=== PATIENT | male | born 1945 | race Caucasian/White ===

== ENCOUNTER 2024-03-28 07:49 | Observation (INO) ==
--- NOTE | 2024-03-28 08:17 | Emergency Department Note ---
ED Provider Note History of Present Illness Chief Complaint: Illness Stated Complaint: burning in chest when breathing Time Seen by Provider: 03/28/24 07:57 79-year-old male, history of coronary artery disease and status post stent x 2 approximately 11 years ago at [facility], who presents to the emergency department with complaint of a burning sensation across his chest. The patient reports that the pain is worsened when laying on his back, and significantly worsened when laying on either side. The patient denies any shortness of breath. Patient denies any pain radiating into the back. The patient reports an episode of reflux approximately 2 weeks ago, but has not had any persistent or recurrent reflux since that time. Patient denies any nausea, diaphoresis, lightheadedness or weakness. Patient also denies any recent upper respiratory symptoms, including sore throat, cough, runny nose or muscle aches. The patient reports that he and his did travel to [place] (900 mile round trip) starting on 03/10, and returned on 03/18. The patient denies any lower extremity swelling, or history of blood clots. The patient currently rates his overall discomfort a 1 out of 10. The patient is on a baby aspirin daily. Home Medications Medication Instructions Recorded Confirmed Type aspirin 81 mg tablet,delayed 81 mg PO DAILY 03/28/24 03/28/24 History release glucosamine sulfate 750 mg tablet 750 mg PO DAILY 03/28/24 03/28/24 History lisinopril 2.5 mg tablet 2.5 mg PO DAILY 03/28/24 03/28/24 History multivitamin 1 tab PO DAILY 03/28/24 03/28/24 History mv-mn-folic 200 mcg-vit K 15 1 cap PO BID 03/28/24 03/28/24 History mcg-lutein 5 mg-zeaxanthin 1 mg capsule (PreserVision AREDS 2 Plus Multivit) nitroglycerin 0.4 mg sublingual 0.4 mg sublingual UD 03/28/24 03/28/24 History tablet omega 6-dkg-qrr-fish oil 1,000 mg 1 cap PO BID 03/28/24 03/28/24 History (120 mg-180 mg) capsule (Fish Oil) rosuvastatin 40 mg tablet 40 mg PO DAILY 03/28/24 03/28/24 History ibuprofen 600 mg tablet 600 mg PO Q8H #0 tabs 03/29/24 Rx omeprazole 40 mg capsule,delayed 40 mg PO DAILY #14 caps 03/29/24 Rx release Allergies Allergy/AdvReac Type Severity Reaction Status Date / Time ketoconazole Allergy Intermediate Rash Unverified 03/28/24 10:43 Past Med/Surg History Problem List S/P coronary artery stent placement Pleuritis Hypoxia (Acute) Acute chest pain (Acute) Acute pericarditis (Acute) Chest pain Medical History CLL (chronic lymphocytic leukemia) Hypertension Hyperlipidemia GERD (gastroesophageal reflux disease) Coronary artery disease Surgical History History of coronary artery stent placement Social History Smoking Status: Never smoker Hx Alcohol Use: Yes Alcohol type: wine Hx Substance Use: No Preferred Language: Kyrgyz Communication Ability: Effective Engineering Director Required: No Beliefs That Will Affect Care: None marital status: Current Living Situation: Spouse current occupational status: retired Feels Safe at Home: Yes Assistive Devices: Glasses Physical Exam Vital Signs Vital Signs - 24 hr 03/28/24 07:53 03/28/24 08:10 03/28/24 08:24 Temperature 36.8 C Temperature Source Temporal Artery Scan Pulse Rate 84 69 Pulse Rate [Apical] Pulse Rate from SpO2 Sensor 68 Pulse Rhythm [Apical] Respiratory Rate 18 19 Respiratory Effort / Characteristics Non-Labored Spontaneous Respiratory Depth Normal Blood Pressure 133/91 Blood Pressure [Right Arm] Blood Pressure Mean 105 Blood Pressure Mean [Right Arm] Blood Pressure Position Sitting Pulse Oximetry 95 95 94 Oxygen Delivery Method Room Air Room Air Sepsis Recent Fever Within 48 Hours No Sepsis New/Unexplained Change in Mental Status No Sepsis Action Taken by Nursing No Action Required 03/28/24 08:29 03/28/24 08:30 03/28/24 08:30 Temperature Temperature Source Pulse Rate 66 62 Pulse Rate [Apical] Pulse Rate from SpO2 Sensor 64 Pulse Rhythm [Apical] Respiratory Rate 21 Respiratory Effort / Characteristics Respiratory Depth Blood Pressure 135/77 Blood Pressure [Right Arm] Blood Pressure Mean 103 Blood Pressure Mean [Right Arm] Blood Pressure Position Pulse Oximetry 93 Oxygen Delivery Method Sepsis Recent Fever Within 48 Hours Sepsis New/Unexplained Change in Mental Status Sepsis Action Taken by Nursing 03/28/24 08:43 03/28/24 08:43 03/28/24 08:45 Temperature Temperature Source Pulse Rate 65 Pulse Rate [Apical] 65 Pulse Rate from SpO2 Sensor 66 Pulse Rhythm [Apical] Regular Respiratory Rate 20 14 Respiratory Effort / Characteristics Non-Labored Respiratory Depth Normal Blood Pressure 116/77 Blood Pressure [Right Arm] 116/77 Blood Pressure Mean 91 Blood Pressure Mean [Right Arm] 90 Blood Pressure Position Pulse Oximetry 93 92 Oxygen Delivery Method Room Air Sepsis Recent Fever Within 48 Hours Sepsis New/Unexplained Change in Mental Status Sepsis Action Taken by Nursing 03/28/24 08:49 03/28/24 08:50 03/28/24 08:50 Temperature Temperature Source Pulse Rate 62 Pulse Rate [Apical] Pulse Rate from SpO2 Sensor 69 Pulse Rhythm [Apical] Respiratory Rate 22 Respiratory Effort / Characteristics Respiratory Depth Blood Pressure Blood Pressure [Right Arm] Blood Pressure Mean Blood Pressure Mean [Right Arm] Blood Pressure Position Pulse Oximetry 89 L 93 91 Oxygen Delivery Method Room Air Room Air Sepsis Recent Fever Within 48 Hours Sepsis New/Unexplained Change in Mental Status Sepsis Action Taken by Nursing 03/28/24 08:50 03/28/24 08:52 03/28/24 08:55 Temperature Temperature Source Pulse Rate Pulse Rate [Apical] 65 57 L Pulse Rate from SpO2 Sensor Pulse Rhythm [Apical] Regular Regular Respiratory Rate 14 16 Respiratory Effort / Characteristics Non-Labored Spontaneous Respiratory Depth Normal Blood Pressure 92/59 L Blood Pressure [Right Arm] 92/59 L 93/56 L Blood Pressure Mean 67 Blood Pressure Mean [Right Arm] 70 68 Blood Pressure Position Pulse Oximetry 93 90 Oxygen Delivery Method Room Air Room Air Sepsis Recent Fever Within 48 Hours Sepsis New/Unexplained Change in Mental Status Sepsis Action Taken by Nursing 03/28/24 08:55 03/28/24 08:55 03/28/24 09:00 Temperature Temperature Source Pulse Rate 57 L Pulse Rate [Apical] Pulse Rate from SpO2 Sensor 60 Pulse Rhythm [Apical] Respiratory Rate 23 Respiratory Effort / Characteristics Respiratory Depth Blood Pressure 93/56 L 94/60 L Blood Pressure [Right Arm] Blood Pressure Mean 69 66 Blood Pressure Mean [Right Arm] Blood Pressure Position Pulse Oximetry 90 Oxygen Delivery Method Sepsis Recent Fever Within 48 Hours Sepsis New/Unexplained Change in Mental Status Sepsis Action Taken by Nursing 03/28/24 09:00 03/28/24 09:22 03/28/24 09:22 Temperature Temperature Source Pulse Rate 63 64 Pulse Rate [Apical] Pulse Rate from SpO2 Sensor 64 64 Pulse Rhythm [Apical] Respiratory Rate 26 H 16 Respiratory Effort / Characteristics Respiratory Depth Blood Pressure 99/65 L Blood Pressure [Right Arm] Blood Pressure Mean 82 Blood Pressure Mean [Right Arm] Blood Pressure Position Pulse Oximetry 88 L 94 Oxygen Delivery Method Sepsis Recent Fever Within 48 Hours Sepsis New/Unexplained Change in Mental Status Sepsis Action Taken by Nursing 03/28/24 09:30 03/28/24 09:30 03/28/24 10:03 Temperature Temperature Source Oral Pulse Rate 64 Pulse Rate [Apical] 63 Pulse Rate from SpO2 Sensor 64 Pulse Rhythm [Apical] Respiratory Rate 18 18 Respiratory Effort / Characteristics Respiratory Depth Normal Blood Pressure 108/63 Blood Pressure [Right Arm] 108/63 Blood Pressure Mean 75 Blood Pressure Mean [Right Arm] 78 Blood Pressure Position Pulse Oximetry 92 92 Oxygen Delivery Method Room Air Sepsis Recent Fever Within 48 Hours Sepsis New/Unexplained Change in Mental Status Sepsis Action Taken by Nursing 03/28/24 10:03 03/28/24 10:30 03/28/24 10:30 Temperature Temperature Source Pulse Rate 66 57 L Pulse Rate [Apical] Pulse Rate from SpO2 Sensor 74 57 L Pulse Rhythm [Apical] Respiratory Rate 16 22 Respiratory Effort / Characteristics Respiratory Depth Blood Pressure 106/60 Blood Pressure [Right Arm] Blood Pressure Mean 77 Blood Pressure Mean [Right Arm] Blood Pressure Position Pulse Oximetry 91 94 Oxygen Delivery Method Sepsis Recent Fever Within 48 Hours Sepsis New/Unexplained Change in Mental Status Sepsis Action Taken by Nursing 03/28/24 11:00 03/28/24 11:00 03/28/24 11:30 Temperature Temperature Source Pulse Rate 59 L 65 Pulse Rate [Apical] Pulse Rate from SpO2 Sensor 59 L 65 Pulse Rhythm [Apical] Respiratory Rate 28 H 26 H Respiratory Effort / Characteristics Respiratory Depth Blood Pressure 108/71 Blood Pressure [Right Arm] Blood Pressure Mean 79 Blood Pressure Mean [Right Arm] Blood Pressure Position Pulse Oximetry 96 95 Oxygen Delivery Method Sepsis Recent Fever Within 48 Hours Sepsis New/Unexplained Change in Mental Status Sepsis Action Taken by Nursing CONSTITUTIONAL: Healthy and well nourished. Alert and oriented X 3. GCS 15. Patient does not appear in any acute distress. HEENT: No scleral icterus or conjunctival injection. No rhinorrhea, posterior pharyngeal erythema or facial edema. NECK: Full active range of motion without discomfort. No JVD or carotid bruits appreciated. LYMPHATICS: No cervical chain adenopathy. RESPIRATORY: Clear to auscultation bilaterally with no wheezing, crackles, rhonchi or stridor. CARDIOVASCULAR: Regular rate and rhythm with no murmurs, rubs or gallops. GASTROINTESTINAL: Bowel sounds present in all quadrants. Examination shows an umbilical hernia, otherwise no focal abdominal tenderness to palpation. MUSCULOSKELETAL: Full range of motion of all joints without discomfort. INTEGUMENTARY: No rash or other significant dermatologic conditions noted. HEMATOLOGIC: No ecchymosis or petechiae. PSYCHIATRIC: Positive affect. NEUROLOGIC: No focal neurologic deficits noted. Course Course Patient history and physical exam were performed. Nurses notes were reviewed. Vital signs were reviewed and were normal. I did review an outside ECG that the patient brought with him from [place], showing no concerning findings. Further review of medical record shows that the patient has not had any prior visits to our facility. IV access was established, and labs are drawn. An ECG was performed, continue to show a normal sinus rhythm without ischemic changes or infarct. The patient was placed on laborer salvage while in the emergency department. Since arrival to the emergency department, and after having an ECG and labs drawn, the patient reported that the pain was getting worse. The patient was administered an aspirin 324 mg chew. A nitroglycerin trial was commenced without any relief of symptoms. It is noted that the patient did have mild hypoxia with a reading as low as 87% while I was in the room. Portable chest x-ray did not show any consolidations or pneumothorax. Cardiac prominence is noted. Review of labs shows an elevated white count, with the patient then advised me that he does have a history of CLL. Further review of labs does not show evidence for electrolyte imbalance. Coag studies and D-dimer are also normal. Glucose is mildly elevated, however LFTs and lipase are normal. An order was placed for a Bio[employer] PCR respiratory panel. Findings and presenting symptoms were discussed with Dr. Mcleod, ED attending physician, who agreed that CT angiography is warranted to rule out pericarditis. He also recommended adding on labs for tickborne illness, which can also cause pericarditis. These orders were entered into the system. Findings were also discussed with the patient, who was in agreement with CT imaging. CT angiography was performed, and suggestive of a left-sided early/mild pericarditis with thickening and adjacent fat stranding. The case was then again discussed with Dr. Mcleod, who recommended hospitalist evaluation. He also recommended administering colchicine, and discussing IV antibiotics with the hospitalist service. An order was placed for blood cultures, lactate and procalcitonin as well. The patient was also administered colchicine 1.2 mg orally. I discussed findings with the patient as well, who was in agreement with admission. The case was then discussed with Dr. Zamarripa, [facility] Hospitalist, who also evaluated the patient, and agrees with admission. Please see their dictation for further treatment and final disposition. After care was transferred to the hospitalist service, it is noted that the patient's Lyme screen was negative. Administered Medications Discontinued Medications Aspirin (Aspirin Chew 324 Mg) 324 mg PO NOW STA Stop: 03/28/24 08:36 Last Admin: 03/28/24 08:41 Dose: 324 mg Documented By: JELLY Aspirin (Aspirin 81 Mg Ectab) 81 mg PO DAILY RENEE Stop: 04/28/24 08:59 Last Admin: 03/29/24 09:29 Dose: 81 mg Documented By: SANDRA Colchicine (Colchicine 0.6 Mg Tab) 1.2 mg PO NOW ONE Stop: 03/28/24 11:14 Last Admin: 03/28/24 12:05 Dose: 1.2 mg Documented By: ALPHONSO Colchicine (Colchicine 0.6 Mg Tab) 0.6 mg PO ONE ONE Stop: 03/28/24 22:01 Last Admin: 03/28/24 21:32 Dose: 0.6 mg Documented By: AGUILAR Colchicine (Colchicine 0.6 Mg Tab) 0.6 mg PO BID RENEE Stop: 04/28/24 08:59 Last Admin: 03/29/24 09:29 Dose: 0.6 mg Documented By: SANDRA Sodium Chloride (Nss) 500 mls @ 999 mls/hr IV .Q31M ONE Stop: 03/28/24 09:29 Last Infusion: 03/28/24 10:03 Dose: Infused Documented By: Admin: 03/28/24 09:16 Dose: 999 mls/hr Documented By: JELLY Ibuprofen (Ibuprofen 600 Mg Tab) 600 mg PO NOW STA Stop: 03/28/24 12:03 Last Admin: 03/28/24 13:09 Dose: 600 mg Documented By: NOHEMY Ibuprofen (Ibuprofen 600 Mg Tab) 600 mg PO Q8H RENEE Stop: 04/27/24 19:59 Last Admin: 03/29/24 13:01 Dose: 600 mg Documented By: Admin: 03/29/24 04:26 Dose: 600 mg Documented By: Admin: 03/28/24 19:36 Dose: 600 mg Documented By: AGUILAR Ioversol (Optiray 320 125ml) 120 ml IV ONCE ONE Stop: 03/28/24 10:02 Last Admin: 03/28/24 10:02 Dose: 120 ml Documented By: MARCELL Nitroglycerin (Nitroglycerin Sl 0.4 Mg/Tab Tab) 0.4 mg SL Q5M PRN PRN Reason: Chest Pain Stop: 04/27/24 08:34 Last Admin: 03/28/24 08:51 Dose: 0.4 mg Documented By: Admin: 03/28/24 08:46 Dose: 0.4 mg Documented By: Admin: 03/28/24 08:41 Dose: 0.4 mg Documented By: JELLY Pantoprazole Sodium (Pantoprazole 40 Mg Tab) 40 mg PO NOW STA Stop: 03/28/24 12:02 Last Admin: 03/28/24 13:09 Dose: 40 mg Documented By: NOHEMY Pantoprazole Sodium (Pantoprazole 40 Mg Tab) 40 mg PO DAILY RENEE Stop: 04/28/24 08:59 Last Admin: 03/29/24 09:30 Dose: 40 mg Documented By: SANDRA Rosuvastatin Calcium (Rosuvastatin Calcium 20 Mg Tab) 40 mg PO DAILY RENEE Stop: 04/28/24 08:59 Last Admin: 03/29/24 09:30 Dose: 40 mg Documented By: SANDRA Medical Decision Making Medical Records Attestation: I reviewed the patient's medical records. Home Medications was personally reviewed by me Laboratory Data Attestation: I reviewed the patient's lab results. 03/29/24 06:55 03/29/24 06:55 Lab Results 03/28/24 03/28/24 03/28/24 Range/Units 08:10 08:55 10:05 WBC 14.34 H (4.8-10.8) K/ul RBC 4.87 (4.70-6.10) M/uL Hgb 14.7 (14.0-18.0) g/dl Hct 43.6 (42.0-52.0) % MCV 89.5 (80.0-100.0) fL MCH 30.2 (25.0-34.0) pg MCHC 33.7 (32.0-36.0) g/dL RDW Std Deviation 43.4 (36.4-46.3) fL RDW Coeff of Frandy 13.3 (11.5-14.5) % Plt Count 205 (130-400) K/uL MPV 9.8 (9.4-12.4) fL Immature Gran % (Auto) 0.6 % Neut % (Auto) 63.5 % Lymph % (Auto) 29.2 % Gilliam % (Auto) 6.1 % Eos % (Auto) 0.3 % Baso % (Auto) 0.3 % Neut # (Auto) 9.11 H (1.40-6.50) K/uL Lymph # (Auto) 4.19 H (1.20-3.40) K/uL Gilliam # (Auto) 0.87 H (0.11-0.59) K/uL Eos # (Auto) 0.04 (0.00-0.50) K/uL Baso # (Auto) 0.05 (0.00-0.20) K/uL Immature Gran # (Auto) 0.08 (0.01-0.20) K/uL ESR 16 (0-20) mm/hr PT 10.4 (9.0-12.0) Seconds INR 1.0 (0.9-1.1) APTT 30 (21-31) Seconds PTT Ratio 1.1 D-Dimer < 190 (0-500) ug/L FEU Sodium 138 (136-145) mmol/L Potassium 4.3 (3.5-5.1) mmol/L Chloride 105 (98-107) mmol/L Carbon Dioxide 27 (21-32) mmol/L Anion Gap 6 (3-11) BUN 17 (6-23) mg/dl Creatinine 0.90 (0.6-1.4) mg/dl Est Cr Clr Drug Dosing 79.9 ml/min Est GFR ( Amer) 94.5 ml/min Est GFR (Non-Af Amer) 81.5 ml/min BUN/Creatinine Ratio 18.9 (10-20) Glucose 128 H (70-99(Fasting)) mg/dl Lactate (0.4-2.0) mmol/L Calcium 9.6 (8.6-10.3) mg/dl Total Bilirubin 0.7 (0.2-1.0) mg/dl AST 16 (13-39) U/L ALT 15 (7-52) U/L Alkaline Phosphatase 55 (34-104) U/L Troponin I High Sens 4.2 (0-20) pg/ml C-Reactive Protein 0.69 H (0-0.5) mg/dl Total Protein 7.1 (6.0-8.3) gm/dl Albumin 4.4 (3.4-5.0) gm/dl Globulin 2.7 (2.5-4.0) gm/dl Albumin/Globulin Ratio 1.6 (0.9-2) Lipase 6 L (11-82) U/L Procalcitonin (0-0.5) ng/ml Adenovirus (PCR) Not Detected (NotDetected) Anaplasma Smear See Comment Babesia Smear See Comment B. pertussis DNA (PCR) Not Detected (NotDetected) B.parapertussis DNA PCR Not Detected (NotDetected) Lyme Disease Screen Negative (Negative) C. pneumoniae DNA (PCR) Not Detected (NotDetected) Coronavirus OC43 (PCR) Not Detected (NotDetected) Coronavirus HKU1 (PCR) Not Detected (NotDetected) Coronavirus 229E (PCR) Not Detected (NotDetected) SARS-CoV-2 (PCR) Not Detected (NotDetected) Coronavirus NL63 (PCR) Not Detected (NotDetected) Human Metapneumovir PCR Not Detected (NotDetected) Influenza Type A (PCR) Not Detected (NotDetected) Influenza Type B (PCR) Not Detected (NotDetected) M. pneumoniae (PCR) Not Detected (NotDetected) Parainfluenza 1 (PCR) Not Detected (NotDetected) Parainfluenza 2 (PCR) Not Detected (NotDetected) Parainfluenza 3 (PCR) Not Detected (NotDetected) Parainfluenza 4 (PCR) Not Detected (NotDetected) RSV (PCR) Not Detected (NotDetected) Entero/Rhino (PCR) Not Detected (NotDetected) 03/28/24 Range/Units 11:33 WBC (4.8-10.8) K/ul RBC (4.70-6.10) M/uL Hgb (14.0-18.0) g/dl Hct (42.0-52.0) % MCV (80.0-100.0) fL MCH (25.0-34.0) pg MCHC (32.0-36.0) g/dL RDW Std Deviation (36.4-46.3) fL RDW Coeff of Frandy (11.5-14.5) % Plt Count (130-400) K/uL MPV (9.4-12.4) fL Immature Gran % (Auto) % Neut % (Auto) % Lymph % (Auto) % Gilliam % (Auto) % Eos % (Auto) % Baso % (Auto) % Neut # (Auto) (1.40-6.50) K/uL Lymph # (Auto) (1.20-3.40) K/uL Gilliam # (Auto) (0.11-0.59) K/uL Eos # (Auto) (0.00-0.50) K/uL Baso # (Auto) (0.00-0.20) K/uL Immature Gran # (Auto) (0.01-0.20) K/uL ESR (0-20) mm/hr PT (9.0-12.0) Seconds INR (0.9-1.1) APTT (21-31) Seconds PTT Ratio D-Dimer (0-500) ug/L FEU Sodium (136-145) mmol/L Potassium (3.5-5.1) mmol/L Chloride (98-107) mmol/L Carbon Dioxide (21-32) mmol/L Anion Gap (3-11) BUN (6-23) mg/dl Creatinine (0.6-1.4) mg/dl Est Cr Clr Drug Dosing ml/min Est GFR ( Amer) ml/min Est GFR (Non-Af Amer) ml/min BUN/Creatinine Ratio (10-20) Glucose (70-99(Fasting)) mg/dl Lactate 0.8 (0.4-2.0) mmol/L Calcium (8.6-10.3) mg/dl Total Bilirubin (0.2-1.0) mg/dl AST (13-39) U/L ALT (7-52) U/L Alkaline Phosphatase (34-104) U/L Troponin I High Sens (0-20) pg/ml C-Reactive Protein (0-0.5) mg/dl Total Protein (6.0-8.3) gm/dl Albumin (3.4-5.0) gm/dl Globulin (2.5-4.0) gm/dl Albumin/Globulin Ratio (0.9-2) Lipase (11-82) U/L Procalcitonin 0.06 (0-0.5) ng/ml Adenovirus (PCR) (NotDetected) Anaplasma Smear Babesia Smear B. pertussis DNA (PCR) (NotDetected) B.parapertussis DNA PCR (NotDetected) Lyme Disease Screen (Negative) C. pneumoniae DNA (PCR) (NotDetected) Coronavirus OC43 (PCR) (NotDetected) Coronavirus HKU1 (PCR) (NotDetected) Coronavirus 229E (PCR) (NotDetected) SARS-CoV-2 (PCR) (NotDetected) Coronavirus NL63 (PCR) (NotDetected) Human Metapneumovir PCR (NotDetected) Influenza Type A (PCR) (NotDetected) Influenza Type B (PCR) (NotDetected) M. pneumoniae (PCR) (NotDetected) Parainfluenza 1 (PCR) (NotDetected) Parainfluenza 2 (PCR) (NotDetected) Parainfluenza 3 (PCR) (NotDetected) Parainfluenza 4 (PCR) (NotDetected) RSV (PCR) (NotDetected) Entero/Rhino (PCR) (NotDetected) Imaging Data Attestation: I personally reviewed and interpreted this imaging study as follows: My Impression: My interpretation of a portable chest x-ray does not show any consolidations or pneumothorax. Mild cardiomegaly is noted. CT angiography of the chest does not show evidence for pulmonary emboli, pneumonia or pneumothorax. Radiologist does make mention of mild thickening and adjacent fat stranding of the left side of the pericardium, concerning for possible early/mild pericarditis. No pericardial fluid is appreciated. Radiologist reports were also reviewed with concurrence. Radiologist's Impression: Chest X-Ray 03/28/24 08:10 XR chest 1V portable CLINICAL HISTORY: Chest pain, nonspecific. COMPARISON STUDY: No previous studies for comparison. FINDINGS: Lung volumes are normal. Minimal left basilar opacity favors atelectasis. There is no pneumothorax or pleural effusion. Mild cardiomegaly. Mediastinal contours are normal. There is no evidence for pulmonary edema. IMPRESSION: No acute cardiopulmonary findings. Mild cardiomegaly. ACT 112: Negative or not required by law. Electronically signed by: Herb Al M.D. 03/28/2024 8:55 AM Chest CTA 03/28/24 09:42 CHEST CTA for PULMONARY ARTERIES CT DOSE: 875.55 mGy.cm HISTORY: Atypical chest pain. Shortness of breath. TECHNIQUE: Multiaxial CT images of the chest were performed following the intravenous administration of contrast to evaluate the pulmonary arteries. 3D/Maximal intensity projection images were also obtained. Sagittal and coronal reformations were also reviewed. A dose lowering technique was utilized adhering to the principles of ALARA. COMPARISON STUDY: None. FINDINGS: No acute fractures within the chest. No pneumothorax. No pleural effusions. The central airways are patent. No focal lung consolidations to suggest a pneumonia. No evidence for pulmonary edema. Mild dependent changes are seen at the lung bases. Normal thyroid gland. Limited views the upper abdomen demonstrate a normal spleen and adrenal glands. A subcentimeter hypodense lesion within the left hepatic lobe is densely too small to characterize but statistically represents a cyst. No mediastinal or hilar lymphadenopathy. The heart is normal in size. Mild thickening and adjacent fat stranding within the or left side of the pericardium. However, no pericardial fluid. This is best seen image 78. Normal esophagus. Normal caliber thoracic aorta with no evidence for dissection. Moderate to severe coronary artery calcifications are noted. No filling defects within the pulmonary arteries to suggest a pulmonary embolus. IMPRESSION: 1. No evidence for a pulmonary embolus or an aortic dissection. 2. Moderate to severe coronary artery calcifications. 3. Mild thickening and adjacent fat stranding within the or left side of the pericardium. However, no pericardial fluid. This is indeterminate but could represent an early/mild pericarditis. ACT 112: Negative or not required by law. Electronically signed by: Odilon Maguire M.D. 03/28/2024 10:39 AM ECG Data Attestation: I personally reviewed and interpreted this ECG as follows: Indication: + chest pain Rate (beats per minute): 74 Rhythm: + normal sinus ECG Intervals/blocks: + Normal QRS, + Normal QT and + Normal MI ECG [place]: + Normal ECG ST segments: + Normal ST segments Comparison ECG Date: from (An outside ECG from the [facility] urgent care center dated 03/27/2024) Change: no significant change MDM Narrative Cardiac monitoring: An order was placed for continuous cardiac monitoring. The monitor shows a rate of 74 with a normal sinus rhythm. hydrator operator history was reviewed throughout the evaluation, and no dysrhythmias were noted. See ED Course section for further details of today's visit. Patient presents with complaint of a burning sensation across to his chest that started yesterday while at a grocery store. The patient was seen at [facility] with a normal ECG. With persistent symptoms, the patient elected to come to the emergency department for further evaluation. The patient does have significant history of coronary artery disease with 2 stents placed 11 years ago. Today's ECG does not show any concerning findings. Portable chest x-ray shows mild cardiomegaly without evidence for pneumonia or pneumothorax. Review of labs shows an elevated white count that the patient attributes to his baseline CLL labs. Troponin was normal. Peripheral smears for Babesia and ehrlichiosis were negative. Lyme screen was also negative. CT imaging was concerning for an early pericarditis as seen over the left pericardial border. Given the patient's presenting symptoms, I do feel that further admission is warranted, with cardiology consultation. The patient was administered colchicine for possible pericarditis. It is noted that the patient also had some hypoxia earlier in his exam. At this point, I do feel that the patient warrants admission. At this point, I do not feel that IV antibiotics are warranted pending further workup, including blood cultures. Impression Acute pericarditis, Acute chest pain, Hypoxia Discharge Plan Visit Data Chief Complaint: Illness Stated Complaint: burning in chest when breathing ED Provider: Marcelino Mcleod ED Midlevel Provider: Ortiz Goodman Discharge Problem: Acute pericarditis, Acute chest pain, Hypoxia Patient Disposition: Admitted As Inpatient Discharge Instructions Interventions: ED Discharge Assessment Last Done: 03/28/24 15:50 Addendum March 30, 2024 03:11 I was consulted by the Advanced Practice Provider and was substantively involved in the patient's visit.This includes aspects of the HPI, MDM, diagnostic interpretations, and disposition/plan. I discussed the case with the FAIZA and agree with the findings and plan as documented in FAIZA Parker's note. Discharge Problem: Acute pericarditis Qualifiers: Pericarditis type: unspecified type Qualified Code(s): I30.9 - Acute pericarditis, unspecified
[2024-03-28 08:37] LABS: Basophils # (auto) 0.05 K/uL (0.00-0.20); Basophils % (auto) 0.3 %; Eosinophils # (auto) 0.04 K/uL (0.00-0.50); Eosinophils % (auto) 0.3 %; Hematocrit (blood only) 43.6 % (42.0-52.0); Hemoglobin 14.7 g/dl (14.0-18.0); Immature Granulocytes # (auto) 0.08 K/uL (0.01-0.20); Immature Granulocytes % (auto) 0.6 %; Lymphocytes # (auto) 4.19 K/uL (1.20-3.40); Lymphocytes % (auto) 29.2 %; Mean Corpuscular Hemoglobin 30.2 pg (25.0-34.0); Mean Corpuscular Hgb Conc 33.7 g/dL (32.0-36.0); Mean Corpuscular Volume 89.5 fL (80.0-100.0); Mean Platelet Volume 9.8 fL (9.4-12.4); Monocytes # (auto) 0.87 K/uL (0.11-0.59); Monocytes % (auto) 6.1 %; Neutrophils # (auto) 9.11 K/uL (1.40-6.50); Neutrophils % (auto) 63.5 %; Platelet Count 205 K/uL (130-400); RDW Coefficient of Variation 13.3 % (11.5-14.5); RDW Standard Deviation 43.4 fL (36.4-46.3); Red Blood Count 4.87 M/uL (4.70-6.10); White Blood Count 14.34 K/ul (4.8-10.8)
[2024-03-28] MEDS: ASPIRIN CHEW 324 MG PO STA (08:41)
[2024-03-28] MEDS: NITROGLYCERIN SL 0.4 MG/TAB TAB SL PRN (08:41)
--- NOTE | 2024-03-28 08:56 | XRay Report ---
XR chest 1V portable CLINICAL HISTORY: Chest pain, nonspecific. COMPARISON STUDY: No previous studies for comparison. FINDINGS: Lung volumes are normal. Minimal left basilar opacity favors atelectasis. There is no pneum othorax or pleural effusion. Mild cardiomegaly. Mediastinal contours are normal. There is no evidence for pulmonary edema. IMPRESSION: No acute cardiopulmonary findings. Mild cardiomegaly. ACT 112: Negative or not required by law. Electronically signed by: Herb Al M.D. 03/28/2024 8:55 AM
[2024-03-28 09:00] LABS: Albumin Globulin Ratio 1.6 (0.9-2); Albumin Level 4.4 gm/dl (3.4-5.0); BUN Creatinine Ratio 18.9 (10-20); Bilirubin,Total 0.7 mg/dl (0.2-1.0); Calcium 9.6 mg/dl (8.6-10.3); Creatinine Clr Calc Pharmacy 79.9 ml/min; Est GFR (African American) 94.5 ml/min; Est GFR (Non-African American) 81.5 ml/min; Globulin 2.7 gm/dl (2.5-4.0); Total Protein 7.1 gm/dl (6.0-8.3); Troponin I High Sensitivity 4.2 pg/ml (0-20)
[2024-03-28 09:03] LABS: D Dimer < 190 ug/L FEU (0-500); Partial Thromboplastin Ratio 1.1; Partial Thromboplastin Time 30 Seconds (21-31); Prothrombin Time 10.4 Seconds (9.0-12.0)
[2024-03-28 09:06] LABS: Potassium 4.3 mmol/L (3.5-5.1)
[2024-03-28] MEDS: SODIUM CHLORIDE 0.9% 500 ML IV ONE (09:16)
[2024-03-28] MEDS: OPTIRAY 320 125ml IV ONE (10:02)
[2024-03-28 10:07] LABS: Adenovirus PCR Not Detected (NotDetected); Bordetella parapertussis PCR Not Detected (NotDetected); Bordetella pertussis PCR Not Detected (NotDetected); Chlamydia pneumoniae PCR Not Detected (NotDetected); Coronavirus 229E PCR Not Detected (NotDetected); Coronavirus CoV-2 (COVID19)PCR Not Detected (NotDetected); Coronavirus HKU1 PCR Not Detected (NotDetected); Coronavirus NL63 PCR Not Detected (NotDetected); Coronavirus OC43PCR Not Detected (NotDetected); Human Metapneumovirus PCR Not Detected (NotDetected); Influenza A PCR Not Detected (NotDetected); Influenza B PCR Not Detected (NotDetected); Mycoplasma pneumoniae PCR Not Detected (NotDetected); Parainfluenza Virus 1 PCR Not Detected (NotDetected); Parainfluenza Virus 2 PCR Not Detected (NotDetected); Parainfluenza Virus 3 PCR Not Detected (NotDetected); Parainfluenza Virus 4 PCR Not Detected (NotDetected); Respiratory Syncytial VirusPCR Not Detected (NotDetected); Rhinovirus/Enterovirus PCR Not Detected (NotDetected)
--- NOTE | 2024-03-28 10:40 | CT Scan Report ---
CHEST CTA for PULMONARY ARTERIES CT DOSE: 875.55 mGy.cm HISTORY: Atypical chest pain. Shortness of breath. TECHNIQUE: Multiaxial CT images of the chest were performed following the intravenous administration of contrast to evaluate the pulmonary arteries. 3D/Maximal intensity projection images were also obta ined. Sagittal and coronal reformations were also reviewed. A dose lowering technique was utilized a dhering to the principles of ALARA. COMPARISON STUDY: None. FINDINGS: No acute fractures within the chest. No pneumothorax. No pleural effusions. The central air ways are patent. No focal lung consolidations to suggest a pneumonia. No evidence for pulmonary edema . Mild dependent changes are seen at the lung bases. Normal thyroid gland. Limited views the upper ab domen demonstrate a normal spleen and adrenal glands. A subcentimeter hypodense lesion within the lef t hepatic lobe is densely too small to characterize but statistically represents a cyst. No mediastin al or hilar lymphadenopathy. The heart is normal in size. Mild thickening and adjacent fat stranding within the or left side of the pericardium. However, no pericardial fluid. This is best seen image 78 . Normal esophagus. Normal caliber thoracic aorta with no evidence for dissection. Moderate to severe coronary artery calcifications are noted. No filling defects within the pulmonary arteries to sugges t a pulmonary embolus. IMPRESSION: 1. No evidence for a pulmonary embolus or an aortic dissection. 2. Moderate to severe coronary artery calcifications. 3. Mild thickening and adjacent fat stranding within the or left side of the pericardium. However, no pericardial fluid. This is indeterminate but could represent an early/mild pericarditis. ACT 112: Negative or not required by law. Electronically signed by: Odilon Maguire M.D. 03/28/2024 10:39 AM
--- NOTE | 2024-03-28 11:35 | History & Physical Report ---
Date of Service March 28, 2024 Assessment & Plan (1) Chest pain: Plan: -Admit to med/tele -Currently hemodynamically stable, stable on RA, and non-toxic appearing -Presented to the ED with approximately 24 hours of burning pain in the chest -ECG, initial high sen trop, and CXR were WNL -CTA of the chest with PE protocol was negative for PE but shows Mild thickening and adjacent fat stranding within the or left side of the pericardium possibly representing early/mid pericarditis -Will obtain TTE now -Will obtain BNP and repeat a 2 hour high sen trop -Continue to monitor on tele -Will consult Cardiology to follow -S/P 1.2 mg Colchicine, will given another 1.2 mg 12 hours after the first dose then continue with 0.6 mg BID tomorrow -Will start 600 mg PO Ibuprofen Q8H for now -Follow ESR/CRP ordered in the ED -BL SCD's for DVT PPX -HH diet if Echo is WNL -AM CBC, CMP, mag, PT/INR (2) Acute pericarditis: Plan: -Noted on CTA of the chest today -Initial full respiratory biofire panel was negative -Tick borne panel is in process -If his infectious workup is unremarkable will need to consider his CLL as a possible etiology -Rest of care per Chest pain plan (3) Hypertension: Plan: -Stable -Will hold home lisinopril for now with low-normal BP onarrival (4) CLL (chronic lymphocytic leukemia): Plan: -Has been on surveillance, no previous treatment -WBC of 14 today with lymphocyte count of 4 -Monitor daily CBC moving forward (5) Hyperlipidemia: Plan: -Continue statin (6) History of coronary artery stent placement: Plan: -Continue aspirin and statin Plan The patient was discussed with Dr. Zamarripa at the time of the admission History of Present Illness Chief Complaint: chest pain Primary Care Provider: Sabas Brown MD Leonidas is a 79 year old male with a PMH significant for CLL (currently monitoring, no treatment), HTN, CAD S/P JUAN placement x 2 approximately 11 years ago at [facility], and hyperlipidemia who presented to the [facility] ED on 03/28/24 with a chief complaint of a burning sensation across his chest. The patient reported to ED staff that he and his traveled to [place] (900 mile round trip) starting on 03/10, and returning on 03/18. On arrival to the ED he was noted to have a BP of 92/59, HR of 57, SpO2 of 89% on RA, and otherwise stable. Labs were significant for a leukocytosis of 14 with neutrophil predominance of 9,lymphocyte count of 4, high sen trop WNL, full respiratory biofire negative, and tick borne panel in process. ECG showed NSR without acute ST segment or T- wave changes. Chest xray was negative for acute findings. CTA of the chest with PE protocol was read as "1. No evidence for a pulmonary embolus or an aortic dissection. 2. Moderate to severe coronary artery calcifications. 3. Mild thickening and adjacent fat stranding within the or left side of the pericardium. However, no pericardial fluid. This is indeterminate but could r epresent an early/mild pericarditis.". The ED staff spoke with Cardiology who recommended starting colchicine and admitting to the medicine service for further evaluation and treatment. Prior to admission the patient was given 324 mg Aspirin, 500 mL NSS, 0.4 mg SL nitroglycerin, and 1.2 mg Colchicine. At the time of the exam the patient was sitting in bed in no acute distress with his bedside, history was obtained from both. They confirm their recent trip to and from [place] to visit their daughter. Yesterday, the patient was walking in the grocery store around noon when he start to develop left sided chest discomfort. He describes it as a burning sensation. Constant, but exacerbated with deep inspiration, laying flat, or laying on his sides. Sitting upright and leaning forward improve his symptoms. Symptoms remained constant overnight prompting ED evaluation. Denies recent fever, chills, cough, hemoptysis, nausea/vomiting, abd pain, dysuria, hematuria, melena, LE swelling, and recent trauma. His pain is currently across the BL chest and a /10. He is a full code and his is his POA. Please refer to Dr. Zamarripa's attestation for any changes to the treatment plan Allergies Allergy/AdvReac Type Severity Reaction Status Date / Time ketoconazole Allergy Intermediate Rash Unverified 03/28/24 10:43 Home Medications Medication Instructions Recorded Confirmed Type aspirin 81 mg tablet,delayed 81 mg PO DAILY 03/28/24 03/28/24 History release glucosamine sulfate 750 mg tablet 750 mg PO DAILY 03/28/24 03/28/24 History lisinopril 2.5 mg tablet 2.5 mg PO DAILY 03/28/24 03/28/24 History multivitamin 1 tab PO DAILY 03/28/24 03/28/24 History mv-mn-folic 200 mcg-vit K 15 1 cap PO BID 03/28/24 03/28/24 History mcg-lutein 5 mg-zeaxanthin 1 mg capsule (PreserVision AREDS 2 Plus Multivit) nitroglycerin 0.4 mg sublingual 0.4 mg sublingual UD 03/28/24 03/28/24 History tablet omega 1-byn-fbf-fish oil 1,000 mg 1 cap PO BID 03/28/24 03/28/24 History (120 mg-180 mg) capsule (Fish Oil) rosuvastatin 40 mg tablet 40 mg PO DAILY 03/28/24 03/28/24 History Past Med/Surg History Problem List (Updated 03/28/24 @ 12:53 by Ortiz Goodman) Hypoxia (Acute) Acute chest pain (Acute) Acute pericarditis (Acute) Chest pain Medical History (Updated 03/28/24 @ 12:53 by Ortiz Goodman) CLL (chronic lymphocytic leukemia) Hypertension Hyperlipidemia GERD (gastroesophageal reflux disease) Coronary artery disease Surgical History History of coronary artery stent placement Social History (Updated 03/28/24 @ 08:13 by Ortiz Goodman) Smoking Status: Never smoker Preferred Language: Telugu marital status: current occupational status: retired Feels Safe at Home: Yes Physical Exam Physical Exam: Physical Exam: General: In no acute distress, stated age, well-nourished, good hygiene HEENT: Normocephalic, atraumatic, no scleral icterus, pupils around round, symmetrical, and reactive to light, moist mucus membranes, trachea midline, no thyromegaly Chest/Pulm: No respiratory distress, symmetrical chest expansion, clear breath sounds throughout Cardiac: RRR, possible pericardial friction rub noted on auscultation of the left chest Abdomen: Negative for ascites and bruising, normoactive bowel sounds, soft, non-tender to palpation throughout Musculoskeletal: Symmetrical and without signs of acute trauma, upper and lower extremities with full ROM, no atrophy, spasticity, or flaccidity Extremities: Radial, dorsalis pedis, and posterior tibial pulses are intact and symmetrical, no edema noted in the BL LE's Skin: Warm, dry, no rashes , lesions, or scars noted Neuro: Alert and oriented to person, place, month, year, and president, no focal defects, no tremors noted Psych: No acute distress, calm and cooperative during the exam Results & Data Results & Data Vital Signs (Past 12 Hours) Vital Signs Temp Pulse Pulse Resp BP BP Pulse Ox 03/28/24 10:03 63 18 108/63 92 03/28/24 08:55 57 L 16 93/56 L 90 03/28/24 08:52 65 14 92/59 L 93 03/28/24 08:50 93 03/28/24 08:49 89 L 03/28/24 08:45 65 14 116/77 92 03/28/24 08:29 66 03/28/24 08:10 95 03/28/24 07:53 36.8 C 84 18 133/91 95 O2 Del Method 03/28/24 10:03 Room Air 03/28/24 08:55 Room Air 03/28/24 08:52 Room Air 03/28/24 08:50 Room Air 03/28/24 08:49 Room Air 03/28/24 08:45 Room Air 03/28/24 08:29 03/28/24 08:10 Room Air 03/28/24 07:53 Room Air Laboratory Results Abnormal lab results 03/28/24 Range/Units 08:10 WBC 14.34 H (4.8-10.8) K/ul Neut # (Auto) 9.11 H (1.40-6.50) K/uL Lymph # (Auto) 4.19 H (1.20-3.40) K/uL [place] # (Auto) 0.87 H (0.11-0.59) K/uL Glucose 128 H (70-99(Fasting)) mg/dl Lipase 6 L (11-82) U/L Diagnostic Findings Chest X-Ray 03/28/24 08:10 XR chest 1V portable CLINICAL HISTORY: Chest pain, nonspecific. COMPARISON STUDY: No previous studies for comparison. FINDINGS: Lung volumes are normal. Minimal left basilar opacity favors atelectasis. There is no pneumothorax or pleural effusion. Mild cardiomegaly. Mediastinal contours are normal. There is no evidence for pulmonary edema. IMPRESSION: No acute cardiopulmonary findings. Mild cardiomegaly. ACT 112: Negative or not required by law. Electronically signed by: Herb Al M.D. 03/28/2024 8:55 AM Chest CTA 03/28/24 09:42 CHEST CTA for PULMONARY ARTERIES CT DOSE: 875.55 mGy.cm HISTORY: Atypical chest pain. Shortness of breath. TECHNIQUE: Multiaxial CT images of the chest were performed following the intravenous administration of contrast to evaluate the pulmonary arteries. 3D/Maximal intensity projection images were also obtained. Sagittal and coronal reformations were also reviewed. A dose lowering technique was utilized adhering to the principles of ALARA. COMPARISON STUDY: None. FINDINGS: No acute fractures within the chest. No pneumothorax. No pleural effusions. The central airways are patent. No focal lung consolidations to suggest a pneumonia. No evidence for pulmonary edema. Mild dependent changes are seen at the lung bases. Normal thyroid gland. Limited views the upper abdomen demonstrate a normal spleen and adrenal glands. A subcentimeter hypodense lesion within the left hepatic lobe is densely too small to characterize but statistically represents a cyst. No mediastinal or hilar lymphadenopathy. The heart is normal in size. Mild thickening and adjacent fat stranding within the or left side of the pericardium. However, no pericardial fluid. This is best seen image 78. Normal esophagus. Normal caliber thoracic aorta with no evidence for dissection. Moderate to severe coronary artery calcifications are noted. No filling defects within the pulmonary arteries to suggest a pulmonary embolus. IMPRESSION: 1. No evidence for a pulmonary embolus or an aortic dissection. 2. Moderate to severe coronary artery calcifications. 3. Mild thickening and adjacent fat stranding within the or left side of the pericardium. However, no pericardial fluid. This is indeterminate but could represent an early/mild pericarditis. ACT 112: Negative or not required by law. Electronically signed by: Odilon Maguire M.D. 03/28/2024 10:39 AM ECG Additional Comments: Normal sinus rhythm Normal ECG No previous ECGs available Code Status & VTE Plan Code Status Full code VTE Prophylaxis Plan VTE Prophylaxis will be ordered: Yes Supervising Physician Co-Signing Physician Notes Patient was seen and examined , presents with chest pain since yesterday , worse while lying down , trop is negative, EKG is nonischemic , CTA no pe, possible pericarditis, ECHO ordered, colchicine started , cardiology consulted, ? indomethacin, IV Toradol prn for pain , continue other home meds PG Care Time/CCT Total # of Minutes Spent Total Time Spent with Patient: Total time spent is greater than 50% in coordination of care (as documented) at patient's floor/unit and/or counseling patient: Coding [place] [address] INT INP/OBS CARE 2/55MIN Patient Type Established Medical Decision Making Moderate Complexity Diagnoses Chest pain R07.9 Acute pericarditis I30.9 Hypertension I10 CLL (chronic lymphocytic leukemia) C91.10 Hyperlipidemia E78.5 History of coronary artery stent placement Z95.5
[2024-03-28] MEDS: COLCHICINE 0.6 MG TAB PO ONE ×2 (12:05→21:32)
--- NOTE | 2024-03-28 12:25 | Electrocardiogram Report ---
Test Reason : Blood Pressure : / mmHG Vent. Rate : 074 BPM Atrial Rate : 074 BPM P-R Int : 186 ms QRS Dur : 090 ms QT Int : 372 ms P-R-T Axes : 074 024 062 degrees QTc Int : 412 ms Normal sinus rhythm Normal ECG No previous ECGs available Confirmed by Sree Middleton ([id number]) on 03/28/2024 12:24:34 PM Referred By: REFERRED SELF Confirmed By:Sree Middleton
[2024-03-28] MEDS: IBUPROFEN 600 MG TAB PO STA (13:09)
[2024-03-28] MEDS: PANTOprazole 40 MG TAB PO STA (13:09)
[2024-03-28 14:11] LABS: C Reactive Protein 0.69 mg/dl (0-0.5)
--- NOTE | 2024-03-28 15:05 | Cardiology Consultation ---
Date of Consultation March 28, 2024 Assessment & Plan (1) Chest pain: (2) Pleuritis: (3) Coronary artery disease: (4) S/P coronary artery stent placement: (5) Hypertension: (6) CLL (chronic lymphocytic leukemia): Plan 79-year-old man with CAD status post remote stenting who presents with 1 day of pleuritic and positional chest pain. Nonspecific finding on chest CT shows involvement of adjacent lung and is external to the parietal pericardium, no evidence of visceral pericardial inflammation or pericardial effusion on radiologic imaging and no pericardial effusion on echocardiography. Given this finding along with the absence of any pathognomonic ECG changes suggesting pericarditis, as well as the atypical nature of his pain (able to lie flat without discomfort, very unusual for pericarditis), his presentation is more consistent with pleuritis of uncertain etiology than pericarditis. As such, would continue to treat with nonsteroidal anti-inflammatory agents primarily. Colchicine is reasonable while inpatient, but would not discharge him on colchicine in the absence of more definitive evidence for pericarditis. Mild leukocytosis likely due to CLL, absence of fever or toxic appearance weighs against bacterial infection. He should be continued on aspirin and statin upon discharge given known coronary artery disease. No ECG, enzyme, or symptoms suggestive of current myocardial ischemia. History of Present Illness Reason for Consultation: acute pericarditis History of Present Illness 79-year-old man with history of CAD (JUAN x 211 years ago), CLL (surveillance, no treatment), and hypertension who noted onset of moderate severity "burning" precordial chest discomfort just over 24 hours ago and was admitted this morning for further evaluation. At recent baseline, he notes no exertional symptoms and no chest pain. Aside from his burning precordial discomfort, no other symptoms. Specifically, no dys pnea, palpitations, diaphoresis, fever, or chills. He has discomfort is worse if he lies on either side while flat, but he is reasonably comfortable lying flat on his back. His discomfort is definitely worsened on deep inspiration. Evaluation here included chest CT which showed no pulmonary embolism but did show some "stranding" near the left ventricular apex which was suggestive of possible pericarditis. To my eye, the stranding is external to the parietal pericardium and includes some pulmonary tissue, no abnormality seen on the visceral side of the pericardial sac. ECG showed sinus rhythm with no ST deviation and troponin was normal. Echocardiogram showed normal LV function with no wall motion abnormalities, moderate LVH, no significant valvular disease, no pericardial effusion. At the time my evaluation, the patient was comfortable at rest and noted his chest discomfort had improved and was present only when he took a deep inspiration, particularly if he were to lie on 1 side or the other (but much less so when lying on his back). Allergies Allergy/AdvReac Type Severity Reaction Status Date / Time ketoconazole Allergy Intermediate Rash Unverified 03/28/24 10:43 Home Medications Medication Instructions Recorded Confirmed Type aspirin 81 mg tablet,delayed 81 mg PO DAILY 03/28/24 03/28/24 History release glucosamine sulfate 750 mg tablet 750 mg PO DAILY 03/28/24 03/28/24 History lisinopril 2.5 mg tablet 2.5 mg PO DAILY 03/28/24 03/28/24 History multivitamin 1 tab PO DAILY 03/28/24 03/28/24 History mv-mn-folic 200 mcg-vit K 15 1 cap PO BID 03/28/24 03/28/24 History mcg-lutein 5 mg-zeaxanthin 1 mg capsule (PreserVision AREDS 2 Plus Multivit) nitroglycerin 0.4 mg sublingual 0.4 mg sublingual UD 03/28/24 03/28/24 History tablet omega 6-fcv-ity-fish oil 1,000 mg 1 cap PO BID 03/28/24 03/28/24 History (120 mg-180 mg) capsule (Fish Oil) rosuvastatin 40 mg tablet 40 mg PO DAILY 03/28/24 03/28/24 History Patient History Medical History CLL (chronic lymphocytic leukemia) Hypertension Hyperlipidemia GERD (gastroesophageal reflux disease) Coronary artery disease Surgical History History of coronary artery stent placement Social History Smoking Status: Never smoker Preferred Language: Singaporean marital status: current occupational status: retired Feels Safe at Home: Yes Physical Exam Physical Exam: Elderly white male who appears comfortable at rest. BP normotensive. Pulse 59 bpm and regular. Skin: no ecchymoses or generalized lesions. HEENT: unremarkable. Neck: JVP at the clavicle at 90 degrees, no carotid bruits. Lungs: clear. Cardiac: regular rhythm, normal S1-2, no murmur. No rub. Abdomen: benign. Extremities: no edema, pulses intact. Neurologic: normal affect and conversation, nonfocal. Results & Data Laboratory Results WBC 14.34, normal hemoglobin and platelet count. Normal electrolytes, BUN 17, creatinine 0.9. BNP 45. Troponin 4.4. C-reactive protein 0.69 (mildly elevated). Procalcitonin 0.06. Diagnostic Findings ECG showed sinus rhythm at 74 bpm and was completely unremarkable (no ST deviation). Chest x-ray unremarkable. Chest CT as noted in HPI. PG Care Time/CCT Total # of Minutes Spent Total Time Spent with Patient: Total time spent is greater than 50% in coordination of care (as documented) at patient's floor/unit and/or counseling patient: Coding Level of Care Code 95017 INT INP/OBS CARE 3/75MIN Diagnoses Chest pain R07.9 Pleuritis R09.1 Coronary artery disease I25.10 S/P coronary artery stent placement Z95.5 Hypertension I10 CLL (chronic lymphocytic leukemia) C91.10
--- NOTE | 2024-03-28 15:08 | XCELERA ---
[id number]
[2024-03-28] MEDS ORDERED: ACETAMINOPHEN 325 MG TAB PO PRN (16:17)
[2024-03-28] MEDS: IBUPROFEN 600 MG TAB PO SCH (19:36)
[2024-03-29 07:23] LABS: Basophils # (auto) 0.05 K/uL (0.00-0.20); Basophils % (auto) 0.5 %; Eosinophils # (auto) 0.08 K/uL (0.00-0.50); Eosinophils % (auto) 0.8 %; Hematocrit (blood only) 40.2 % (42.0-52.0); Hemoglobin 13.3 g/dl (14.0-18.0); Immature Granulocytes # (auto) 0.13 K/uL (0.01-0.20); Immature Granulocytes % (auto) 1.2 %; Lymphocytes # (auto) 3.85 K/uL (1.20-3.40); Lymphocytes % (auto) 36.8 %; Mean Corpuscular Hemoglobin 30.2 pg (25.0-34.0); Mean Corpuscular Hgb Conc 33.1 g/dL (32.0-36.0); Mean Corpuscular Volume 91.2 fL (80.0-100.0); Mean Platelet Volume 9.9 fL (9.4-12.4); Monocytes # (auto) 0.82 K/uL (0.11-0.59); Monocytes % (auto) 7.8 %; Neutrophils # (auto) 5.53 K/uL (1.40-6.50); Neutrophils % (auto) 52.9 %; Platelet Count 174 K/uL (130-400); RDW Coefficient of Variation 13.4 % (11.5-14.5); RDW Standard Deviation 45.3 fL (36.4-46.3); Red Blood Count 4.41 M/uL (4.70-6.10); White Blood Count 10.46 K/ul (4.8-10.8)
[2024-03-29 08:01] LABS: Albumin Globulin Ratio 1.5 (0.9-2); Albumin Level 3.7 gm/dl (3.4-5.0); BUN Creatinine Ratio 23.3 (10-20); Bilirubin,Total 0.8 mg/dl (0.2-1.0); Calcium 8.8 mg/dl (8.6-10.3); Creatinine Clr Calc Pharmacy 70.7 ml/min; Est GFR (African American) 80.3 ml/min; Est GFR (Non-African American) 69.3 ml/min; Globulin 2.4 gm/dl (2.5-4.0); Magnesium 2.2 mg/dl (1.7-2.4); Potassium 4.2 mmol/L (3.5-5.1); Total Protein 6.1 gm/dl (6.0-8.3)
[2024-03-29] MEDS: ASPIRIN 81 MG ECTAB PO SCH (09:29)
[2024-03-29] MEDS: COLCHICINE 0.6 MG TAB PO SCH (09:29)
[2024-03-29] MEDS: ROSUVASTATIN CALCIUM 20 MG TAB PO SCH (09:30)
[2024-03-29] MEDS: PANTOprazole 40 MG TAB PO SCH (09:30)
--- NOTE | 2024-03-29 10:12 | Communication Note ---
Date of Service: March 29, 2024 By CMS guidelines, a determination that the admission or continued stay is not medically necessary has been made by a member of the UR committee and a physic maricarmen for this hospital stay, therefore a Code 44 will be completed and the Inpatient admission will be changed to outpatient.
--- NOTE | 2024-03-29 10:34 | Communication Note ---
Date of Service: March 29, 2024 By CMS guidelines, a determination that the admission or continued stay is not medically necessary has been made by a member of the UR committee and a physi bob for this hospital stay, therefore a Code 44 will be completed and the Inpatient admission will be changed to outpatient.
--- NOTE | 2024-03-29 11:06 | Cardiology Progress Note ---
Date of Service March 29, 2024 Assessment & Plan (1) Chest pain: (2) Pleuritis: (3) Coronary artery disease: (4) S/P coronary artery stent placement: (5) Hypertension: (6) CLL (chronic lymphocytic leukemia): Plan Patient is steadily improving on colchicine and ibuprofen. Symptoms most consistent with pleuritis, no real evidence for pericarditis. As such, no clear-cut role for colchicine, agree with nonsteroidal anti- inflammatory use, either high-dose ibuprofen or naproxen would be fine. NSAID should be continued for 48 hours after his pleuritic chest pain completely disappears. Recommended taking with food, agree with adding gastroprotective agent such as famotidine. He should continue his aspirin 81 mg daily given known CAD. Okay for discharge. No specific cardiac follow-up necessary in the absence of additional symptoms. Admission and Anticipated Discharge Date Admission Date: March 28, 2024 Subjective He feels much better overall, still with some pleuritic chest discomfort on deep inspiration, particular when lying on his side. At this point, only mild symptoms and only with deep breaths. No dyspnea, palpitations, lightheadedness. Telemetry showed sinus rhythm in the 50-60 bpm range without ectopy or dysrhythmia. Physical Exam Physical Exam: No distress. Afebrile. BP normotensive. Pulse 56 bpm and regular. Respirations 18 unlabored. Skin: no ecchymoses or generalized lesions. HEENT: unremarkable. Neck: JVP at the clavicle at 90 degrees, no carotid bruits. Lungs: clear. Cardiac: regular rhythm, normal S1-2, no murmur. No rub. Abdomen: benign. Extremities: no edema, pulses intact. Neurologic: normal affect and conversation, nonfocal. Results & Data Vital Signs (Past 12 Hours) Vital Signs Temp Pulse Resp BP Pulse Ox O2 Del Method 03/29/24 08:04 98.2 F 56 L 18 117/65 95 Room Air 03/29/24 03:50 98.2 F 57 L 20 118/70 92 Room Air 03/28/24 23:35 98.6 F 59 L 20 111/69 93 Room Air Laboratory Results Normal electrolytes, BUN 24, creatinine 1.03.` PG Care Time/CCT Total # of Minutes Spent Total Time Spent with Patient: Total time spent is greater than 50% in coordination of care (as documented) at patient's floor/unit and/or counseling patient: Coding Level of Care Code 85709 SUB INP/OBS CARE 235MIN Diagnoses Chest pain R07.9 Pleuritis R09.1 Coronary artery disease I25.10 S/P coronary artery stent placement Z95.5 Hypertension I10 CLL (chronic lymphocytic leukemia) C91.10
--- NOTE | 2024-03-29 14:49 | Discharge Summary ---
Date of Service March 29, 2024 Admission HPI Per Admitting Provider Leonidas is a 79 year old male with a PMH significant for CLL (currently monitoring, no treatment), HTN, CAD S/P JUAN placement x 2 approximately 11 years ago at [facility], and hyperlipidemia who presented to the [facility] ED on 03/28/24 with a chief complaint of a burning sensation across his chest. The patient reported to ED staff that he and his traveled to [place] (900 mile round trip) starting on 03/10, and returning on 03/18. On arrival to the ED he was noted to have a BP of 92/59, HR of 57, SpO2 of 89% on RA, and otherwise stable. Labs were significant for a leukocytosis of 14 with neutrophil predominance of 9,lymphocyte count of 4, high sen trop WNL, full respiratory biofire negative, and tick borne panel in process. ECG showed NSR without acute ST segment or T- wave changes. Chest xray was negative for acute findings. CTA of the chest with PE protocol was read as "1. No evidence for a pulmonary embolus or an aortic dissection. 2. Moderate to severe coronary artery calcifications. 3. Mild thickening and adjacent fat stranding within the or left side of the pericardium. However, no pericardial fluid. This is indeterminate but could represent an early/mild pericarditis.". The ED staff spoke with Cardiology who recommended starting colchicine and admitting to the medicine service for further evaluation and treatment. Prior to admission the patient was given 324 mg Aspirin, 500 mL NSS, 0.4 mg SL nitroglycerin, and 1.2 mg Colchicine. At the time of the exam the patient was sitting in bed in no acute distress with his bedside, history was obtained from both. They confirm their recent trip to and from [place] to visit their daughter. Yesterday, the patient was walking in the grocery store around noon when he start to develop left sided chest discomfort. He describes it as a burning sensation. Constant, but exacerbated with deep inspiration, laying flat, or laying on his sides. Sitting upright and leaning forward improve his symptoms. Symptoms remained constant overnight prompting ED evaluation. Denies recent fever, chills, cough, hemoptysis, nausea/vomiting, abd pain, dysuria, hematuria, melena, LE swelling, and recent trauma. His pain is currently across the BL chest and a 1/10. He is a full code and his is his POA. Principal Diagnosis Chest pain due to nonspecific pleuritis/pleurisy Discharge Exam PHYSICAL EXAMINATION Last 24h vital signs reviewed, see documentation in flowsheet General: comfortable appearing, no distress HEENT: Normocephalic, atraumatic, pupils round and equal, sclerae anicteric, no conjunctival injection, moist mucus membranes Lungs: Normal respiratory effort. Clear to auscultation bilaterally. No RRW Heart: Regular rate and rhythm, no murmurs. No JVD. no friction rub. Chest wall is nontender to palpation Abdomen: Soft, nontender, nondistended. Bowel sounds present. Extremities: Warm, dry, well-perfused. No extremity edema. Neuro: Alert and oriented x 4, face symmetric, moves 4 extremities well Psych: Normal affect and behavior Discharge Data Allergies Allergy/AdvReac Type Severity Reaction Status Date / Time ketoconazole Allergy Intermediate Rash Unverified 03/28/24 10:43 Consultations 03/28/24 11:32 ED Decision to Admit Stat 03/28/24 12:00 Consult Cardiology Routine Ordered Studies 03/28/24 09:42 CT angio chest PE protocol Stat Chest X-Ray 03/28/24 08:10 XR chest 1V portable CLINICAL HISTORY: Chest pain, nonspecific. COMPARISON STUDY: No previous studies for comparison. FINDINGS: Lung volumes are normal. Minimal left basilar opacity favors atelectasis. There is no pneumothorax or pleural effusion. Mild cardiomegaly. Mediastinal contours are normal. There is no evidence for pulmonary edema. IMPRESSION: No acute cardiopulmonary findings. Mild cardiomegaly. ACT 112: Negative or not required by law. Electronically signed by: Herb Al M.D. 03/28/2024 8:55 AM Chest CTA 03/28/24 09:42 CHEST CTA for PULMONARY ARTERIES CT DOSE: 875.55 mGy.cm HISTORY: Atypical chest pain. Shortness of breath. TECHNIQUE: Multiaxial CT images of the chest were performed following the intravenous administration of contrast to evaluate the pulmonary arteries. 3D/Maximal intensity projection images were also obtained. Sagittal and coronal reformations were also reviewed. A dose lowering technique was utilized adhering to the principles of ALARA. COMPARISON STUDY: None. FINDINGS: No acute fractures within the chest. No pneumothorax. No pleural effusions. The central airways are patent. No focal lung consolidations to suggest a pneumonia. No evidence for pulmonary edema. Mild dependent changes are seen at the lung bases. Normal thyroid gland. Limited views the upper abdomen demonstrate a normal spleen and adrenal glands. A subcentimeter hypodense lesion within the left hepatic lobe is densely too small to characterize but statistically represents a cyst. No mediastinal or hilar lymphadenopathy. The heart is normal in size. Mild thickening and adjacent fat stranding within the or left side of the pericardium. However, no pericardial fluid. This is best seen image 78. Normal esophagus. Normal caliber thoracic aorta with no evidence for dissection. Moderate to severe coronary artery calcifications are noted. No filling defects within the pulmonary arteries to suggest a pulmonary embolus. IMPRESSION: 1. No evidence for a pulmonary embolus or an aortic dissection. 2. Moderate to severe coronary artery calcifications. 3. Mild thickening and adjacent fat stranding within the or left side of the pericardium. However, no pericardial fluid. This is indeterminate but could represent an early/mild pericarditis. ACT 112: Negative or not required by law. Electronically signed by: Odilon Maguire M.D. 03/28/2024 10:39 AM 03/29/24 06:55 03/29/24 06:55 Hospital Course (1) Pleuritis: 79-year-old man with history of coronary disease with stent in the past and low-grade CLL presented with substernal chest pain. This pain was pleuritic in nature and aggravated by breathing but was not positional. In the ED he had a evaluation with chest x-ray, EKG, negative serial high-sensitivity troponin. underwent CTA of the chest which was negative for pulmonary embolism however there was finding of "Mild thickening and adjacent fat stranding within the or left side of the pericardium. However, no pericardial fluid. This is indeterminate but could represent an early/mild pericarditis" he was treated with NSAIDs and colchicine for possible pericarditis, printing equipment mechanic apprentice was consulted and TTE obtained. printing equipment mechanic apprentice thought pericarditis unlikely because of lack of pericardial effusion, clinical symptoms not completely consistent with pericarditis, EKG without any changes compatible with pericarditis. Reviewed chest CT films appears may be a non specific pleuritis/pleurisy. Regardless treatment would be the same with NSAIDs. Etiology may be viral or idiopathic. Respiratory bio fire testing was negative. There is no evidence of pneumonia, he had no fever cough or hypoxia, leukocytosis resolved with NSAIDs/colchicine alone, serial procalcitonin was negative. inflammatory markers such as ESR/CRP normal or only minimally elevated. CLL can cause lung involvement including pulmonary infiltrates/consolidations and pleural effusions however his CLL has been very quiescent and low levels of this seems unlikely. If worsening signs and symptoms consultation with his oncologist and pulmonary would be appropriate. Lyme serology was negative, anaplasmosis and babesiosis smears negative but DNA testing pending. I do not see any evidence by exam or history that this would be related to a rheumatologic disease. he had significant improvement in symptoms overnight with colchicine and NSAIDs. Pain much less prominent now only 1 focal area and only with inspiration. No events on telemetry. Discussed plan of care with the patient and with Dr. Middleton at bedside this morning he will discharge home on tapering course of ibuprofen and follow-up with primary care. If symptoms recur the NSAID course may need to be lengthened. Added 2-week course of PPI for gastroprotection setting of NSAIDs and baby aspirin history of GERD. Tests pending: blood cultures - ngtd at 24h anaplasmosis and babesiosis DNA take ibuprofen 600 mg three times a day for at least three more days or until pain resolved then decrease to 400 mg three times a day for three days then decrease to 200 mg three times a day for three days depending on your symptoms, your doctor may stop it after 10-14d or continue tapering the dose more slowly (2) Hypertension: continue lisinopril (3) CLL (chronic lymphocytic leukemia): -Has been on surveillance, no previous treatment -WBC of 14 in ED normalized to 10.4 today -follow up with Dr. Humphreys, heme[facility]onc at [facility] (4) Hyperlipidemia: -Continue statin (5) History of coronary artery stent placement: CAD, hx stent - no evidence of ACS or angina to account for his chest pain -Continue aspirin and statin -follow up with Dr. Solares (6) Coronary artery disease: Total Time Total Time Spent Total Time Spent (In Minutes): I personally spent: 45 minutes today on clinical care activities including: reviewing chart notes and vital signs reviewing labs reviewing studies discussion with oracle database consultant(s) examining and counseling the patient writing orders, discharge instructions documentation Discharge Plan Discharge Items Patient Disposition: Home - Self-Care Reason For Visit: CHEST PAIN, ACUTE PERICARDITIS Discharge Diagnosis: Nonspecific pleuritis Activity: Resume your previous activity Non-emergency contact: Primary Care Provider and Nursing Director Call non-emergency contact if: you have any medication questions, your symptoms worsen and you have a fever Follow-up/Referrals: Sarbjit Solares DO [Physician] - Adam Humphreys MD [Surgeon] - Sabas Brown MD [Primary Care Provider] - Diet: Heart Healthy Addtl Attending Provider Instructions: You were evaluated for chest pain This is related to some inflammation where the lung/lining around the lung sits next to the heart This looks like a nonspecific pleuritis - often a specific cause is not found, many or most are triggered by viral infection. We did not see evidence of pericarditis (inflammation of the sac around the heart) - based on clinical symptoms, Echocardiogram, EKG We will treat this with NSAIDs (anti-inflammatory) - tapering dose of ibuprofen is easiest: take ibuprofen 600 mg three times a day for at least three more days or until pain resolved then decrease to 400 mg three times a day for three days then decrease to 200 mg three times a day for three days depending on your symptoms, your doctor may stop it after 10-14d or continue tapering the dose more slowly Follow up with your PCP and Dr. Solares CLL can cause lung involvement, however, this seems unlikely since you have a mild case. If the inflammation is recurrent or persistent, your doctors can consult with Dr. Humphreys I will give you a prescription for omeprazole to take for two weeks for stomach protection while on the ibuprofen Call your doctor if you develop stomach pain, seek medical attention if you have black/tarry or bloody stool or decreased urine output/dark urine Tests pending: blood cultures - finalize after 5 days DNA tests for anaplasmosis and babesiosis - takes about a full week to result I will call you if these are abnormal It was a pleasure taking care of you in the hospital Shena Hernandez MD Pending Studies at Discharge: Yes Stand-Alone Forms: My [facility] Fanminder, Smoking Cessation Medications and DC Order Prescriptions: New ibuprofen 600 mg Tablet 600 mg PO Q8H Qty: 0 0RF Rx Instructions: buy over the counter - see instructions section for dosing omeprazole 40 mg capsule,delayed release(DR/EC) 40 mg PO DAILY Qty: 14 0RF Continued multivitamin Tablet 1 tab PO DAILY aspirin 81 mg Tablet,Delayed Release (Dr/Ec) 81 mg PO DAILY nitroglycerin 0.4 mg tablet, sublingual 0.4 mg sublingual UD Rx Instructions: DISSOLVE ONE TABLET UNDER THE TONGUE EVERY 5 MINUTES NEEDED FOR CHEST PAIN. DO NOT EXCEED A TOTAL OF 3 DOSES IN 15 MINUTES- IF PAIN PERSISTS SEEK MEDICAL ATTENTION lisinopril 2.5 mg tablet 2.5 mg PO DAILY glucosamine sulfate 750 mg Tablet 750 mg PO DAILY Rx Instructions: administer with a meal rosuvastatin 40 mg tablet 40 mg PO DAILY omega 3-vjw-lji-fish oil [Fish Oil] 1,000 mg (120 mg-180 mg) Capsule 1 cap PO BID PreserVision AREDS 2 Plus MV 200 mcg-15 mcg- 5 mg-1 mg Capsule 1 cap PO BID Discharge Orders: Discharge Order (Routine); Ordered 03/29/24 Ordered By: Shena Hernandez Admission Data Admit Date/Time: 03/28/24 11:36 Attending Provider: Shena Hernandez Admit Provider: Bettina Zamarripa Primary Care Provider: Sabas Brown Other Providers: Bettina Zamarripa; Sree Middleton Other Interventions: Discharge Summary Assessment (RN) Last Done: 03/29/24 11:01 Coding Level of Care Code 00004 INP/OBS DISCH >30 MIN Diagnoses Pleuritis R09.1 Hypertension I10 CLL (chronic lymphocytic leukemia) C91.10 Hyperlipidemia E78.5 History of coronary artery stent placement Z95.5 Coronary artery disease I25.10
--- OUTSIDE RECORDS SUMMARY | 2024-03-30 02:35 | External Medical Summary | Summary of Care ---
Author Name Unknown Organization [facility] Address [address] [place] [address] Phone [phone] Care Team Providers Care Supervisor Metal Fabricating Name Role Phone Sabas Brown MD Primary Care Provider [phone] Reason for Visit * Reason Comments Outpatient Testing Encounter Details Date Type Department Care Team (Late st Contact Info) Description 03/05/2024 10:50 AM EDT Laboratory Laboratory [facility] [address] [place] [address] [facility] [address] [place] [id number] CLL (chronic lymphocytic leukemia) ([facility]) Allergies Active Allergy Reactions Criticality Noted Date Comments Ketoconazole Rash 02/03/2021 documented as of this encounter (statuses as of 03/05/2024) Medications Medication Sig Dispensed Refills Start Date End Date Status LISINOPRIL 2.5 MG PO TABS take 1 tablet daily 0 12/29/2014 Active ASPIRIN 81 MG PO TABS once daily 0 Act lise PRESERVISION AREDS 2 PO CAPS take 2 capsules daily 0 Active FISH OIL 1000 MG PO CPDR twice daily 0 Active GLUCOSAMINE CHONDROITIN ADV PO TABS take 1 tablet daily 0 Active Multiple Vitamins-Minerals (CENTRUM) Tablet Take 1 Tab by mouth daily. 0 Active amLODIPine Besylate 2.5 MG Oral Tablet (Norvasc) Take 1 Tablet by mouth in the morning. 0 Active Rosuvastatin Calcium 40 MG Oral Tablet (Crestor) Take 1 Tablet by mouth in the morning. 0 Active documented as of this encounter (statuses as of 03/05/2024) Active Problems Problem Noted Date Diagnosed Date CLL (chronic lymphocytic leukemia) 01/05/2015 documented as of this encounter (statuses as of 03/05/2024) Immunizations Name Administration Dates Next Due COVID-19 mRNA, LNP-s, No Pre serve, 2-Dose Series (Pfizer) 08/04/2021,01/26/2021,12/30/2020 COVID-19, LNP-s, No Preserve , Wei-sucrose, Ages 12+ (Pfizer) 2022 Covid-19, Mrna, Lnp-s, Pf, B ivalent, 30 Mcg, IM, 12 yrs and above (Pfizer) 08/08/2022 documented as of this encounter Social History Tobacco Use Types Packs/Day Years Used Date Smoking Tobacco: Never Smokeless Tobacco: Never Alcohol Use Standard Drinks/Week Comments Yes 0 (1 standard drink = 0.6 oz pur e alcohol) Sex and Gender Information Value Date Recorded Sex Assigned at Not on file Gender Identity Not on file Sexual Orientation Not on file Job Start Date Occupation Industry Not on file Not on file Not on file documented as of this encounter Plan of Treatment Upcoming Encounters Date Type Department Care Team (Late st Contact Info) Description 03/08/2024 9:00 AM EDT Office Visit Hematology/Oncology [facility] [place] [address] [place] [address] Roxana Lauren CRNP [address] [facility] [place] [address] Health Maintenance Due Date Last Done Comments Depression Screening 1957 Hepatitis C Screening 02/05/1963 DTaP,Tdap,and Td Vaccines (1 - Tdap) 1964 Pneumococcal Vaccine: 65+ Years Completed 08/25/2014, 09/10/2012 Zoster Vaccines Completed 05/19/2023, 0311/2022, 10/15/2012 Influenza Vaccine (FLU shot) Completed , 07/14/2022, 10/08/2020, Additional history exists COVID-19 Vaccine Completed 08/23/2023, 07/2022, 2022, Additional history exists GARDASIL-HPV IMMUNIZATION SERIES Aged Out No longer eligible based on patient's age to complete this topic Hepatitis B Aged Out No longer eligi ble based on patient's age to complete this topic MENINGOCOCCAL (MENACTRA/MENVEO) Aged Out No longer eligible based on patient's age to complete this topic documented as of this encounter Medical Devices Not on filedocumented as of this encounter Procedures Procedure Name Priority Date/Time Associated Diagnosis Comments DIFFERENTIAL, AUTOMATED STAT 03/05/2024 10:37 AM EDT CLL (chronic lymphocytic leukemia) ([facility]) CBC STAT 03/05/2024 10:37 AM EDT CLL (chronic lymphocytic leukemia) ([facility]) CBC STAT 03/05/2024 10:37 AM EDT CLL (chronic lymphocytic leukemia) ([facility]) documented in this encounter Results * (ABNORMAL) DIFFERENTIAL, AUTOMATED (03/05/2024 10:37 AM EDT) WBC 10.79 4.00 - 10.80 K/uL 03/05/2024 10:46 AM EDT [facility] 56-02 Neutrophils % 44.0 40.0 - 75.0 % 03/05/2024 10:46 AM EDT [facility] 56-02 Lymphocytes % 47.7(H) 18.0 - 42.0 % 03/05/2024 10:46 AM EDT [facility] 56-02 Monocytes % 6.3 1.0 - 11.0 % 03/05/2024 10:46 AM EDT [facility] 56-02 Eosinophils % 1.6 0.0 - 6.0 % 03/05/2024 10:46 AM EDT [facility] 56-02 Basophils % 0.4 0.0 - 2.0 % 03/05/2024 10:46 AM EDT [facility] 56-02 Absolute Neutrophils 4.75 1.80 - 7.70 K/uL 03/05/2024 10:46 AM EDT [facility] 56-02 Absolute Lymphocytes 5.15(H) 1.00 - 4.80 K/ul 03/05/2024 10:46 AM EDT [facility] 56-02 Absolute Monocytes 0.68 0.00 - 1.10 K/uL 03/05/2024 10:46 AM EDT [facility] 56 Absolute Eosinophils 0.17 0.00 - 0.70 K/uL 03/05/2024 10:46 AM EDT [facility] 56 Absolute Basophils 0.04 0.00 - 0.20 K/uL 03/05/2024 10:46 AM EDT [facility] 56 Blood Venous blood specimen / Unknown Venipuncture / Unknown 03/05/2024 10:37 AM EDT 03/05/2024 10:37 AM EDT Adam Humphreys MD LAB BLOOD ORDERABLES [address] [place] [address] * CBC (03/05/2024 10:37 AM EDT) WBC 10.79 4.00 - 10.80 K/uL 03/05/2024 10:46 AM EDT [address] RBC 4.83 4.50 - 5.25 M/uL 03/05/2024 10:46 AM T [address] HGB 14.7 14.0 - 16.8 g/dL 03/05/2024 10:46 AM T [address] HCT 45.6 40.0 - 48.4 % 03/05/2024 10:46 AM T [facility] 56 MCV 94.4 82.0 - 99.5 fL 03/05/2024 10:46 AM EDT [facility] 56 MCH 30.4 27.0 - 34.0 pg 03/05/2024 10:46 AM EDT [facility] 56 MCHC 32.2 32.0 - 36.0 g/dL 03/05/2024 10:46 AM T [facility] 56 RDW 14.2 11.5 - 15.5 % 03/05/2024 10:46 AM EDT [facility] 56 PLT 213 140 - 400 K/uL 03/05/2024 10:46 AM EDT [facility] 56 MPV 9.6 6.6 - 11.1 fL 03/05/2024 10:46 AM EDT [facility] 56- Blood Venous blood specimen / Unknown Venipuncture / Unknown 03/05/2024 10:37 AM EDT 03/05/2024 10:37 AM EDT Adam Humphreys MD LAB BLOOD ORDERABLES [facility] 56- [address] [facility] [place] [address] documented in this encounter Visit Diagnoses Diagnosis CLL (chronic lymphocytic leukemia) (HCC) Chronic lymphoid leukemia, without mention of having achieved remission documented in this encounter Care Teams Supervisor [employer] Relationship Specialty Start Date End Date [facility] [address] [facility] [address] PCP - General Family Medicine 12/31/14 documented as of this encounter
--- OUTSIDE RECORDS SUMMARY | 2024-03-30 02:35 | External Medical Summary | Summary of Care ---
Author Name Unknown Organization [facility] Address [address] [place] [address] Phone [phone] Care Team Providers Care Document Review Specialist Name Role Phone Sabas Brown MD Primary Care Provider [phone] Reason for Visit * Reason Comments Follow Up Encounter Details Date Type Department Care Team (Late st Contact Info) Description 03/08/2024 9:00 AM EDT Office Visit Hematology/Oncology [facility] [place] [address] [facility] [id number] Roxana Lauren CRNP [address] [facility] [place] [id number] CLL (chronic lymphocytic leukemia) ([facility])* Allergies Active Allergy Reactions Criticality Noted Date Comments Ketoconazole Rash 02/03/2021 documented as of this encounter (statuses as of 03/11/2024) Medications Medication Sig Dispensed Refills Start Date [...] as of this encounter (statuses as of 03/11/2024) Active Problems Problem Noted Date Diagnosed Date CLL (chronic lymphocytic leukemia) 01/05/2015 documented as of this encounter (statuses as of 03/11/2024) Immunizations Name Administration Dates Next Due COVID-19 [...] on file documented as of this encounter Last Filed Vital Signs Vital Sign Reading Time Taken Comments Blood Pressure 125/74 03/08/2024 8:50 AM EDT Pulse 57 03/08/2024 8:50 AM EDT Temperature 36.4 C (97.6 F) 03/08/2024 8:50 AM ED T Respiratory Rate 16 03/08/2024 8:50 AM EDT Oxygen Saturation 96% 03/08/2024 8:50 AM EDT Inhaled Oxygen Concentration - - Weight 101.5 kg (223 lb 11.2 oz) 03/08/2024 8:50 AM EDT Height - - Body Mass Index 32.1 02/06/2018 2:13 PM EDT documented in this encounter Progress Notes * Roxana Lauren CRNP - 03/08/2024 9:00 AM EDT Hematology/Oncology Outpatient Clinic note Carmela Rangel [address] [place] [address] Name: Leonidas Escalera Date: 03/07/2024 CHIEF COMPLAINT: Leonidas Escalera is a 79 year old male here today for f/u visit today. Patient of Dr. Adam Humphreys. From Patient chart confirmed with patient. From Dr. Adam Humphreys note 02/03/23. HEMATOLOGY/ONCOLOGY DIAGNOSIS: Chronic lymphocytic leukemia - intermediate risk category DATE OF DIAGNOSIS: December 2014 CURRENT TREATMENT: Observation DIAGNOSTIC WORKUP: Peripheral smear 12/25/14: ALC 3850; smudge cells seen. Suggestive of lymphoproliferative disorder. 01/06/2015: WBC 9870, Hgb 15.3, Hct 44.6, MCV 88, PLT 235, ANC 4220, ALC 4910 SPEP negative for M spike Flow cytometry- reveals a lambda-bearing, monoclonal B-lymphoid populationthat has an overall immunophenotype compatible with common chronic lymphocytic leukemia (B-CLL). This population is negative for CD38 and positive for ZAP70 which puts it in an Intermediate prognostic category IgVH mutated at 7.53% LDH 169 IgG 671, IgA 109, IgM 47 FISH CLL panel from 01/19/2015: Negative OTHER IMPORTANT HISTORY: Ischemic heart disease- May 2013 Hypercholesterolemia HISTORY OF PRESENT ILLNESS: Leonidas Escalera is a 79 year old male with a history as outlined above. Currently here for f/u visit today. Patient feeling well today. No complaints or concerns verbalized. Denies drenching night sweats or unexplained weight loss. Denies LAD. 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) Past Surgical History: Procedure Laterality Date CARDIAC STENT PLACEMENT, ATHERECTOMY, 1 VESSEL 05/2013 REMOVAL OF APPENDIX 1961 REMOVAL OF TONSILS, UNDER AGE 13 1950 Social History Socioeconomic History Marital status: Spouse name: Not on file Number of children: Not on file Years of education: Not on file Highest education level: Not on file Occupational History Occupation: professor/research associate scientist Comment: reitired; molecular biology Tobacco Use Smoking status: Never Smokeless tobacco: Never Substance and Sexual Activity Alcohol use: Yes Drug use: No Sexual activity: Not on file Other Topics Concern Not on file Social History Narrative Not on file Social Determinants of Health Financial Resource Strain: Not on file Food Insecurity: Not on file Transportation Needs: Not on file Physical Activity: Not on file Stress: Not on file Social Connections: Not on file Intimate Partner Violence: Not on file Housing Stability: Not on file Review of patient's allergies indicates: Allergen Reactions Ketoconazole Rash Current Outpatient Medications Medication Sig Dispense Refill LISINOPRIL 2.5 MG PO TABS take 1 tablet daily ASPIRIN 81 MG PO TABS once daily PRESERVISION AREDS 2 PO CAPS take 2 capsules daily FISH OIL 1000 MG PO CPDR twice daily GLUCOSAMINE CHONDROITIN ADV PO TABS take 1 tablet daily Multiple Vitamins-Minerals (CENTRUM) Tablet Take 1 Tab by mouth daily. amLODIPine Besylate 2.5 MG Oral Tablet (Norvasc) Take 1 Tablet by mouth in the morning. Rosuvastatin Calcium 40 MG Oral Tablet (Crestor) Take 1 Tablet by mouth in the morning. No current facility-administered medications for this visit. REVIEW OF SYSTEMS: See HPI - otherwise negative OBJECTIVE: Filed Vitals: 03/08/24 0850 BP: 125/74 Pulse: 57 Resp: 16 Temp: 36.4 C (97.6 F) TempSrc: Tympanic SpO2: 96% Weight: 101.5 kg (223 lb 11.2 oz) Wt Readings from Last 5 Encounters: 03/08/24 101.5 kg (223 lb 11.2 oz) 02/03/23 102.2 kg (225 lb 3.2 oz) 02/03/22 102.8 kg (226 lb 11.2 oz) 02/03/21 101.7 kg (224 lb 3.2 oz) 01/29/19 100.3 kg (221 lb 1.6 oz) PHYSICAL EXAM: ECOG: Performance Status 0 = 100% Normal Activity General Appearance: Normal - Healthy appearing patient in no acute distress Lymph Nodes: Normal - No palpable lymph nodes in the neck, supraclavicular or axillary areas Lungs/Thorax: Normal - Clear to auscultation Heart: Normal - Regular rate and rhythm, normal S1, S2, no appreciable murmurs Pulses/Extremities: Normal - 2+ throughout and symmetrical, no edema Abdomen: Normal - Soft, nontender, bowel sounds present, no appreciable hepatosplenomegaly, no palpable masses Neurologic: Normal - Grossly intact LABS: Results for orders placed or performed in visit on 03/05/24 CBC Result Value Ref Range WBC 10.79 4.00 - 10.80 K/uL RBC 4.83 4.50 - 5.25 M/uL HGB 14.7 14.0 - 16.8 g/dL HCT 45.6 40.0 - 48.4 % MCV 94.4 82.0 - 99.5 fL MCH 30.4 27.0 - 34.0 pg MCHC 32.2 32.0 - 36.0 g/dL RDW 14.2 11.5 - 15.5 % PLT 213 140 - 400 K/uL MPV 9.6 6.6 - 11.1 fL DIFFERENTIAL, AUTOMATED Result Value Ref Range WBC 10.79 4.00 - 10.80 K/uL Neutrophils % 44.0 40.0 - 75.0 % Lymphocytes % 47.7 (H) 18.0 - 42.0 % Monocytes % 6.3 1.0 - 11.0 % Eosinophils % 1.6 0.0 - 6.0 % Basophils % 0.4 0.0 - 2.0 % Absolute Neutrophils 4.75 1.80 - 7.70 K/uL Absolute Lymphocytes 5.15 (H) 1.00 - 4.80 K/ul Absolute Monocytes 0.68 0.00 - 1.10 K/uL Absolute Eosinophils 0.17 0.00 - 0.70 K/uL Absolute Basophils 0.04 0.00 - 0.20 K/uL IMPRESSION/PLAN: CLL, intermediate prognosis with CD 38 negative, [place] 70 positive, IgVH mutated, CLL FISH negative in 2014 Patient feeling clinically well today and physical exam is unremarkable His ALC remains stable just around 5000, no anemia or thrombocytopenia No B symptoms Continue to observe. Repeat CBCd in six months. RTC in one year with provider with cbc/diff JATIN Palomares documented in this encounter Nursing Notes * Scarlett Garcia MED ASSIST - 03/08/2024 8:50 AM EDT Patient identifed by name and birthdate Do you have any concerns about pain management for today's visit? Yes. Patient instructed to discuss pain concerns with provider during the visit today Living Will or Advance Directive for Health Care as noted on the problem list. [facility] is a way you can talk to your provider on line through e-mail. Would you like to sign up? I can activate it for you? ALREADY ACTIVE Filed Vitals: 03/08/24 0850 BP: 125/74 Pulse: 57 Resp: 16 Temp: 36.4 C (97.6 F) TempSrc: Tympanic SpO2: 96% Weight: 101.5 kg (223 lb 11.2 oz) Patient was instructed to not get up on the exam table/exam chair until directed and assisted by their provider; patient is to remain seated in the chair/ wheelchair/ exam table/ exam chair for fall prevention and safety reasons. Patient is aware to have assistance to step down off exam table/exam chair with personnel. Patient voiced full comprehension of instructions. documented in this encounter Plan of Treatment Upcoming Encounters Date Type Department Care Team (Late st Contact Info) Description 08/08/2024 10:10 AM EDT Laboratory Laboratory [facility] [place] [address] [place] [id number] Wiliam Rangel [facility] [address] [place] [address] [id number] 03/04/2025 10:00 AM EDT Laboratory Laboratory [facility] Margarita Carbajal [address] [place] [phone] [facility] [address] [place] [address] [address] [id number] 03/11/2025 11:00 AM EDT Office Visit Hematology/Oncology [facility] [place] [address] [place] [address] [phone] Roxana Lauren CRNP [address] [place], [place] [address] [address] Scheduled Orders Name Type Priority Associated Diagnoses Orde r Schedule CBC WITH WBC DIFFERENTIAL Lab STAT CLL (chronic lymphocytic leukemia) (HCC) Every 6 Months for 2 Occurrences starting 03/08/2024 until 04/08/2025 Health Maintenance Due Date Last Done Comments Depression Screening 1957 Hepatitis C Screening 02/05[birth year]1964 DTaP,Tdap,and Td Vaccines (1 - Tdap) 1965 Pneumococcal Vaccine: 65+ Years Completed 08/25/2014, 09/10/2012 Zoster Vaccines Completed 05/19/2023, 03/0 11/2022, 10/15/2012 Influenza Vaccine (FLU shot) Completed , [...] Not on filedocumented as of this encounter Visit Diagnoses Diagnosis CLL (chronic lymphocytic leukemia) (HCC)- Primary Chronic lymphoid leukemia, without mention of having achieved remission documented in this encounter Care Teams Document Review Specialist Relationship Specialty Start Date End Date Sabas Brown MD [address] [place] [address] PCP - General Family Medicine 12/31/14 documented as of this encounter
--- OUTSIDE RECORDS SUMMARY | 2024-03-30 02:36 | External Medical Summary | Continuity of Care Document ---
Author Name Unknown Organization [facility] Address [address], [place] [id number] Care Team Providers Care Hockey Instructor Name Role Phone Sabas Brown Primary Care Physician [phone] [id number] Date(s): 11/07/23 - 11/07/23 [facility] [address], [address] [place] [address] [phone] Encounter Diagnosis HLD (hyperlipidemia)(Discharge Diagnosis) - 11/07/23 Dyspnea(Discharge Diagnosis) - 11/07/23 HTN (hypertension)(Discharge Diagnosis) - 11/07/23 CAD in [place] artery(Discharge Diagnosis) - 11/07/23 Hyperlipidemia, unspecified(Final) - Dyspnea, unspecified(Final) - Discharge Disposition: Home or Self Care Attending Physician: JATIN Vasquez Sarah A Allergies, Adverse Reactions, Alerts Substance Reaction Severity Status ketoconazole topical reddness Rash Active Assessment and Plan Extracted from: Title:Cardiology Office Visit Note Author:JATIN Allen rd, Sarah A Date:11/07/23 IMPRESSIONS: 1. Status post angioplasty and stenting of the right coronary with two drug- eluting stents in 2012. 2. History of an abnormal stress ECG with normal stress echo imaging, 08/2019, with preserved left ventricular systolic function and a functional capacity greater than 20%. 3. Hyperlipidemia. 4. 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 An EKG was performed in the office which showed SB without signs of ischemia. His heart rate is in the 50s without any AV akin blockers on board. It's possible his intermittent dyspnea could be due to chronotropic incompetence. I asked him to check his heart rate at peak exercise with a pulse ox on his next walk and let us know where it's getting to. His blood pressure is borderline but he feels much betteroff the amlodipine with the improvement in his orthostatic symptoms so I will his antihypertensive regimen as is. He continues on statin therapy. I will have him get lipids and a cmp on his way out today. He will return to the clinic in a month via telehealth Immunizations Given and Recorded Vaccine Date Status Refusal Reason SARS-CoV-2 (COVID-19) mRNA-vacc - [id number] 08/23/23 Recorded influenza virus vaccine, inactivated 07/21/23 Bang rded influenza virus vaccine, inactivated 07/14/22 Give n influenza virus vaccine, inactivated 10/08/20 Give n influenza virus vaccine, inactivated 08/15/19 Give n influenza virus vaccine, inactivated 08/23/18 Give n influenza virus vaccine, inactivated 10/16/17 Give n influenza virus vaccine, inactivated 10/12/16 Give n influenza virus vaccine, inactivated 10/07/15 Give n influenza virus vaccine, inactivated 08/25/14 Give n influenza virus vaccine, inactivated 08/25/14 Give n influenza virus vaccine, inactivated 09/10/12 Give n influenza virus vaccine, inactivated 09/14/11 Give n zoster vaccine, inactivated 05/19/23 Recorded zoster vaccine, inactivated 12/29/22 Recorded SARS-CoV-2 (COVID-19) mRNA [id number] vax 12/30/20 Recorded pneumococcal 13-valent vaccine 08/25/14 Given tetanus/diphtheria/pertuss, acel (Tdap) 03/29/13 G iven zoster vaccine live 10/15/12 Recorded pneumococcal 23-valent vaccine 09/10/12 Given tetanus toxoids-diphtheria, Td (Adult) 07/12/05 Re corded Medications Aspirin Low Dose Start: 11/26/10 14:06:12, 81 mg =, PO, Daily, Refills: 0, current medication from another provider Start Date: 11/26/10 Status: Ordered Centrum Start: 11/26/10 14:07:00, 1 tab, PO, Daily, Refills: 0, current medication from another provider Start Date: 11/26/10 Status: Ordered Efudex/Calciportiene Start: 11/09/23 13:55:00 EST, Efudex/Calciportiene, eRx Product Type: Compound, See Instructions, Disp# 30 g, Refills: 1, Apply to scalp and forehead BID for 7- 8 days. Don't get near eyes. Avoid sun., Note to Pharmacy: Compounded 5% flurouracil and... Start Date: 11/09/23 Status: Ordered Fish Oil Start: 11/26/10 14:06:34 EST, 1,000 mg =, PO, bid, Refills: 0, current medication from another provider Start Date: 11/26/10 Status: Ordered Glucosamine Chondroitin MSM Complex oral tablet Start: 05/24/13 11:04:00, 1 tab, PO, Daily Start Date: 05/24/13 Status: Ordered lisinopril 2.5 mg oral tablet Start: 11/07/23 11:04:00 EST, 1 tab, PO, Daily, Disp# 90 tab, Refills: 3, Note to Pharmacy: [facility], Pharmacy: [facility] Start Date: 11/07/23 Status: Ordered Nitrostat 0.4 mg sublingual tablet Start: 11/07/23 11:17:00 EST, 1 tab, SL, q5min, Disp# 25 tab, Refills: 1, not to exceed 3 doses/15 min--if pain persists, seek medical attention, PRN: Chest Pain Start Date: 11/07/23 Status: Ordered PreserVision AREDS 2 Start: 08/27/15 14:56:00 EDT, 1 cap, PO, bid Start Date: 08/27/15 Status: Ordered rosuvastatin 40 mg oral tablet Start: 11/07/23 11:16:00 EST, 1 tab, PO, qhs, Disp# 90 tab, Refills: 3, Pharmacy: [facility] Start Date: 11/07/23 Status: Ordered Shingrix intramuscular injection Start: 12/29/22 13:44:00 EST, 0.5 mL, IM, ONCE, Disp# 1 each, Refills: 1, repeat dose in 2 to 6 months. have shot in pharmacy, Pharmacy: [id number] Start Date: 12/29/22 Status: Ordered Problem List Condition Confirmation Course Effective Dates Status Health Status Informant Basal cell adenocarcinoma 1 Confirmed Active Bruise Confirmed Active CAD in [place] artery Confirmed Active Changing skin lesion Confirmed Active Colonoscopy 2, 3 Confirmed Active Coronary arteriosclerosis in [place] artery Confirmed Active Drug coated stent 4 Confirmed Active Echocardiogram abnormal Confirmed Active Family history of melanoma Confirmed Active History of basal cell carcinoma of skin Confirmed Active Hyperlipidemia Confirmed Active Impaired fasting glucose Confirmed 10/29/09 Active Lymphoplasmacytoid lymphoma, CLL 5, 6 Confirmed Active MORBID OBESITY Confirmed 10/29/09 Active Actinic keratoses Confirmed Active DNR (do not resuscitate) 7 Confirmed Active Onychomycosis Confirmed Active Colonic polyp 8 Confirmed 09/24/19 Active Rosacea Confirmed Active Seborrheic keratoses Confirmed Active Skin lesion Confirmed Active Stented coronary artery 9 Confirmed Active Umbilical hernia Confirmed Active Weight disorder Confirmed Active 1sees Dr. Pierce ; hemorrhoids [address]1879: normal 4stents x2 RCA distal, RCA Mid 5sees Dr. Humphreys 6sees Dr. Faria 7Pt has Advanced Directives for health and living will for health and Power of Attoney, copy in chart. 8tubular adenoma , 3 stents Diagnosis Diagnosis Type Effective Dates Health Status Cl inical Service Informant HLD (hyperlipidemia) Discharge Diagnosis 11/07/23 Non-Specified Dyspnea Discharge Diagnosis 11/07/23 Non-Specified HTN (hypertension) Discharge Diagnosis 11/07/23 Non-Specified CAD in [place] artery Discharge Diagnosis 11/07/23 Non-Specified Procedures Procedure Date Related Diagnosis Body Site Status Electrodesiccation with curettage 1 01/19/23 Completed Shave biopsy and cauterization of skin 12/08/22 Completed Shave biopsy and cauterization of skin 06/23/21 Completed Shave biopsy and cauterization of skin 11/10/20 Completed Colonoscopy 2 09/04/19 Completed Electrodesiccation with curettage 3 08/09/18 Completed Shave biopsy of skin 07/31/18 Comp leted Angioplasty 4 06/24/13 Completed Colonoscopy 5, 6 01/23/12 Complete d appendectomy Completed Cardiac catheterization 7 Completed cardiac stents Completed plastic surgery on lip Co mpleted Stress test treadmill 8 C ompleted 1left central chest 2IMPRESSION: - Diverticulosis in the sigmoid colon. - Non-bleeding internal hemorrhoids. - One 2 mm polyp at the appendiceal orifice,removed with a cold biopsy forceps. Resected and retrieved. 3right neck 4Cardiac 81105: hemorrhoids 6Colonoscopy normal- Repeat in 5 years due to Family History of Colon Ca. 7stenting x 2 in RCA 810/2019 Results Laboratory List Name Date Comprehensive Metabolic Panel (COMP META B PANEL) 11/07/23 Lipid Profile (LIPOPROTEINS) 11/07/23 NT-Pro BNP 11/07/23 Most recent to oldest [Reference Range]: 1 eGFR CKD-EPI [>60 mL/min/1.73 m2] 77 mL/ min/1.73 m2 1 (11/07/23 11:50 AM) Non-HDL 109 mg/dL 2 (11/07/23 11:50 AM) BNP, NT-Pro [<450 pg/mL] <36 pg/mL 3 (11/07/23 11:50 AM) Estimated CrCl 74.96 mL/min (11/07/23 12:27 PM) Anion Gap [5-14 mmol/L] 6 mmol/L (11/07/23 11:50 AM) Alb [3.5-5.0 g/dL] 4.3 g/dL (11/07/23 11:50 AM) Alk Phos [38-126 unit/L] 63 unit/L (11/07/23 11:50 AM) ALT [<50 unit/L] 22 unit/L (11/07/23 11:50 AM) AST [15-46 unit/L] 25 unit/L (11/07/23 11:50 AM) BUN [7-20 mg/dL] 21 mg/dL *HI* (11/07/23 11:50 AM) Ca [8.4-10.2 mg/dL] 10.0 mg/dL (11/07/23 11:50 AM) Chol/HDL 4 (11/07/23 11:50 AM) Chol [125-200 mg/dL] 149 mg/dL (11/07/23 11:50 AM) Cl- [96-107 mmol/L] 110 mmol/L *HI* (11/07/23 11:50 AM) HCO3 [22-30 mmol/L] 26 mmol/L (11/07/23 11:50 AM) Cret [0.70-1.30 mg/dL] 1.01 mg/dL (11/07/23 11:50 AM) Glu [74-106 mg/dL] 84 mg/dL (11/07/23 11:50 AM) HDL [>35 mg/dL] 40 mg/dL (11/07/23 11:50 AM) K [3.5-5.1 mmol/L] 4.7 mmol/L (11/07/23 11:50 AM) LDL Chol, Calculated [50-130 mg/dL] 74 m g/dL (11/07/23 11:50 AM) Na [137-145 mmol/L] 142 mmol/L (11/07/23 11:50 AM) T Bili [0.2-1.3 mg/dL] 0.4 mg/dL (11/07/23 11:50 AM) Prot [6.3-8.2 g/dL] 7.0 g/dL (11/07/23 11:50 AM) TG [<200 mg/dL] 176 mg/dL (11/07/23 11:50 AM) 1Result Comment: Testing Performed By: Dept of Pathology [facility] Neo Choi, [address] [facility] [place] [address] 2Result Comment: Testing Performed By: Dept of Pathology [facility] Neo Choi, [address] [facility] [place] [address] 3Result Comment: CHECKED Vital Signs Most recent to oldest [Reference Range]: 1 Patient Weight 102.6 kg (11/07/23 10:52 AM) Heart Rate 63 bpm (11/07/23 10:52 AM) Blood Pressure 138/80mmHg (11/07/23 10:52 AM) BP Location # 1 Right Arm (11/07/23 10:52 AM) Social History Social History Type Response Smoking Status Never smoked cigaret aretha Sex Male Cardiology * Contributor_system, [id number]: VERIFY, PERFORM Event Display: EKG Authored Date: Please click on link to see image. Cardiology Outpatient Note * JATIN Vasquez Sarah A: PERFORM, MODIFY, MODIFY, MODIFY Event Display: Cardiology Outpt Note Authored Date: Primary Care Provider MD Brown Juan History of Present Illness Mr. Escalera presents for follow up of history of coronary artery disease status post angioplasty and stenting of the mid to distal right coronary artery, hyperlipidemia, and hypertension and negative stress echo for ischemia 08/2019 with normal LV function. His orthostatic symptoms have improved with the discontinuation of amlodipine. He has noticed that he is intermittently feeling like he has to take bigger breaths when walking his dog. He does a half mile to mile loop with his dog most days. He felt like every 50 feet he had totake a deeper breath. It doesn't happenon everywalk however. It also doesn't seem to correlate with more or less exertion ie whether or not he is goingup a hill. 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 No edema. His weight is up but he attributes this to increase calories over the holidays. Review of Systems All other systems reviewed and negative except as discussed in the HPI Physical Exam Vitals & Measurements HR:63(Monitored) BP:138/80 SpO2:98% WT:102.6kg WT:102.600kg(Dosing) Physical Examination General: Alert and oriented, No acute distress. Respiratory: Lungs are clear to auscultation, Respirations are non-labored. Cardiovascular: Normal rate, Regular rhythm, No murmur, No edema, no carotid bruits to auscultation bilaterally. Integumentary: Warm, Dry, [place] Neurologic: Alert, Oriented. Cognition and Speech: Speech clear and coherent. Psychiatric: Cooperative, Appropriate mood & affect. Assessment/Plan IMPRESSIONS: 1. Status post angioplasty and stenting of the right coronary with two drug- eluting stents in 2012. 2. History of an abnormal stress ECG with normal stress echo imaging, 08/2019, with preserved left ventricular systolic function and a functional capacity greater than 20%. 3. Hyperlipidemia. 4. 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 An EKG was performed in the office which showed SB without signs of ischemia. His heart rate is in the 50s without any AV akin blockers on board. It's possible his intermittent dyspnea could be due to chronotropic incompetence. I asked him to check his heart rate at peak exercise with a pulse ox on his next walk and let us know where it's getting to. His blood pressure is borderline but he feels much betteroff the amlodipine with the improvement in his orthostatic symptoms so I will his antihypertensive regimen as is. He continues on statin therapy. I will have him get lipids and a cmp on his way out today. He will return to the clinic in a month via telehealth Problem List/Past Medical History Ongoing Actinic keratoses Basal cell adenocarcinoma Bruise CAD in [place] artery Changing skin lesion Colonic polyp Colonoscopy Coronary arteriosclerosis in [place] artery DNR (do not resuscitate) Drug coated stent Dyspnea Echocardiogram abnormal Family history of melanoma History of basal cell carcinoma of skin Hyperlipidemia Impaired fasting glucose Lymphoplasmacytoid lymphoma, CLL MORBID OBESITY Onychomycosis Rosacea Seborrheic keratoses Skin lesion Stented coronary artery Umbilical hernia Weight disorder Historical Granulation tissue Procedure/Surgical History Electrodesiccation with curettage (01/19/2023)Shave biopsy and cauterization of skin (12/08/2022)Shave biopsy and cauterization of skin (06/23/2021)Shave biopsy and cauterization of skin (11/10/2020)Colonoscopy (09/04/2019)Electrodesiccation with curettage (08/09/2018)Shave biopsy of skin (07/31/2018)Angioplasty (06/24/2013)Colonoscopy (01/23/2012)appendectomycardiac stentsCardiac catheterizationplastic surgery on lipStress test treadmill Medications aspirin(Aspirin Low Dose), 81 mg, PO, Daily chondroitin/glucosamine/methylsulfonylmethane(Glucosamine Chondroitin MSM Complex oral tablet), 1 tab, PO, Daily lisinopril(lisinopril 2.5 mg oral tablet), 2.5 mg= 1 tab, PO, Daily, 3 refills multivitamin with minerals(Centrum), 1 tab, PO, Daily multivitamin with minerals(PreserVision AREDS 2), 1 cap, PO, bid nitroglycerin(Nitrostat 0.4 mg sublingual tablet), 0.4 mg= 1 tab, SL, q5min, PRN, 1 refills omega-3 polyunsaturated fatty acids(Fish Oil), 1000 mg, PO, bid rosuvastatin(rosuvastatin 40 mg oral tablet), 40 mg= 1 tab, PO, qhs, 3 refills zoster vaccine, inactivated(Shingrix intramuscular injection), 0.5 mL, IM, ONCE, 1 refills Allergies ketoconazole topicalreddness, Rash Social History Smoking Status Never smoked cigarettes Alcohol - Low Risk Exercise - Regular exercise Exercise type:Walking Tobacco - Denies Tobacco Use Family History Aortic aneurysm..: Father. Colon polyp.: Father and Brother. High Blood Pressure: Father. Macular degeneration.: Mother and Father. Melanoma: Brother. Stroke: Father. TIA: Mother. Health Status Family Member(s) Electronic Signature on File CC: Sabas Brown MD [address] [place] [id number] Electronically Reviewed/Signed by: JATIN Pate Author Signature Dt/Tm:11/07/2023 11:[address] [facility] Patient Care team information Care Team Personnel Name: MD Brown Juan Position: Physician - Family Med Member Role: Primary Care Provider Address: Address: [address] [place] [id number] [place] Care Team Related Persons Name: ALLEGRA ESCALERA Address: home [address] [place], [place] [address]KK[place] [phone]
--- OUTSIDE RECORDS SUMMARY | 2024-03-30 02:36 | External Medical Summary | Continuity of Care Document ---
Author Name Unknown Organization [facility] [address] Address [address] [place], [place] [id number] Care Team Providers Care Air Table Operator Name Role Phone Sabas Brown Primary Care Physician [phone] [id number] Date(s): 11/02/23 - 11/02/23 [facility] [address] [facility] [address] [facility] [place], [place] [phone] Encounter Diagnosis Impaired fasting glucose(Final) - Hyperlipidemia, unspecified(Final) - Discharge Disposition: Home or Self Care Attending Physician: MD Brown Juan Referring Physician: MD Brown Juan Allergies, Adverse Reactions, Alerts Substance Reaction Severity Status ketoconazole topical reddness Rash Active Immunizations Given and Recorded Vaccine Date Status Refusal Reason SARS-CoV-2 (COVID-19) mRNA-vacc - [id number] 08/23/23 Recorded influenza virus vaccine, inactivated 07/21/23 [...] another provider Start Date: 11/26/10 Status: Ordered Fish Oil Start: 11/26/10 14:06:34 EST, 1,000 mg =, PO, bid, Refills: 0, current medication from another provider Start Date: 11/26/10 Status: Ordered Glucosamine Chondroitin MSM Complex oral tablet Start: 05/24/13 11:04:00, 1 tab, PO, Daily Start Date: 05/24/13 Status: Ordered lisinopril 2.5 mg oral tablet Start: 06/02/23 13:11:00 EDT, See Instructions, Disp# 20 tab, Refills: 0, TAKE 1 TABLET DAILY, Noteto Pharmacy: [facility], Pharmacy: [id number] Start Date: 06/02/23 Status: Ordered Nitrostat 0.4 mg sublingual tablet Start: 11/01/22 10:45:00 EST, 1 tab, SL, q5min, Disp# 25 tab, Refills: 1, not to exceed 3 doses/15 min--if pain persists, seek medical attention, PRN: Chest Pain Start Date: 11/01/22 Status: Ordered PreserVision AREDS 2 Start: 08/27/15 14:56:00 EDT, 1 cap, PO, bid Start Date: 08/27/15 Status: Ordered rosuvastatin 40 mg oral tablet Start: 01/30/23 16:44:00 EDT, See Instructions, Disp# 90 tab, Refills: 3, TAKE 1 TABLET DAILY, Pharmacy: [facility] Start Date: 01/30/23 Status: Ordered Shingrix intramuscular injection Start: 12/29/22 13:44:00 EST, 0.5 mL, IM, ONCE, Disp# 1 each, Refills: 1, repeat dose in 2 to 6 months. have shot in pharmacy, Pharmacy: [id number] Start Date: 12/29/22 Status: Ordered Problem List Condition Confirmation Course Effective Dates Status Health Status Informant Basal cell adenocarcinoma 1 Confirmed Active Bruise Confirmed Active CAD in [place] artery Confirmed Active Changing skin lesion Confirmed Active Colonoscopy 2, 3 Confirmed Active Coronary arteriosclerosis in [place] artery Confirmed Active Drug coated stent 4 [...] Confirmed Active 1sees Dr. Pierce ; hemorrhoids 23718: normal 4stents x2 RCA distal, RCA Mid 5sees Dr. Humphreys 6sees Dr. Faria 7Pt has Advanced Directives for health and living will [facility] in [facility]. 8tubular adenoma , 3 stents Procedures Procedure Date Related Diagnosis Body Site [...] forceps. Resected and retrieved. 3right neck 4Cardiac 83106: hemorrhoids 6Colonoscopy normal- Repeat in 5 years due to Family History of Colon Ca. 7stenting x 2 in RCA 810/2018 Results Laboratory List Name Date Hemoglobin A1C (HEMOGLOBIN, A1C) 11/02/23 Thyroid Stimulating Hormone (TSH) 11/02/23 Most recent to oldest [Reference Range]: 1 Estimated Average Glucose 140 mg/dL 1 (11/02/23 9:31 AM) HbA1c [4.0-6.0 %] 6.5 % *HI* (11/02/23 9:31 AM) TSH [0.47-4.68 uIU/mL] 3.30 uIU/mL 2 (11/02/23 9:31 AM) 1Result Comment: Testing Performed By: Dept of Pathology [facility] Estephanie Choi, [address] [place] [address] 2Result Comment: Testing Performed By: Dept of Pathology [facility] Estephanie Choi, [address] [place] [address] Social History Social History Type Response Smoking Status Never smoked cigaret aretha Sex Male Patient Care team information Care Team Personnel Name: MD Brown Juan Position: Physician - Family Med Member Role: Primary Care Provider Address: Address: [address] [place] [address], [place] [address] [place] Care Team Related Persons Name: NAHUM ALLEGRA Address: home [address] [place] [address], [place] [phone]
--- OUTSIDE RECORDS SUMMARY | 2024-03-30 02:36 | External Medical Summary ---
Author Name Unknown Address Unknown Organization [facility] [place] [address] Laboratory Report Ordering Provider Test Date Status MAULIK TRAORE 03/05/2024 10:37:53 Final Observation Date Value Abnormality Reference (Units ) Status SYNC LEUKOCYTES IN BLOOD BY AUTOMATED COUNT 03/05/2024 10:37:53 10.79 4.00-10.80 (K/uL) Final Segs 03/05/2024 10:37:53 44.0 40.0-75.0 (%) Final Lymphs % 03/05/2024 10:37:53 47.7 Above high normal 18.0-42.0 (%) Final Monos 03/05/2024 10:37:53 6.3 1.0-11.0 (%) Final Eosinophils 03/05/2024 10:37:53 1.6 0.0-6.0 (%) Final Basos 03/05/2024 10:37:53 0.4 0.0-2.0 (%) Final Absolute Segs 03/05/2024 10:37:53 4.75 1.80-7.70 (K/uL) Final Lymphs, absolute 03/05/2024 10:37:53 5.15 Above high normal 1.00-4.80 (K/ul) Final Monos, Abs 03/05/2024 10:37:53 0.68 0.00-1.10 (K/uL) Final Eos, Abs 03/05/2024 10:37:53 0.17 0.00-0.70 (K/uL) Final Basos, Abs 03/05/2024 10:37:53 0.04 0.00-0.20 (K/uL) Final Performing Location [facility] [place] [address]
--- OUTSIDE RECORDS SUMMARY | 2024-03-30 02:36 | External Medical Summary ---
Author Name Unknown Address Unknown Organization K[facility] [place] [address] Laboratory Report Ordering Provider Test Date Status MAULIK TRAORE 03/05/2024 10:37:53 Final Observation Date Value Abnormality Reference (Units ) Status WBC, Total 03/05/2024 10:37:53 10.79 4.00-10.8 0 (K/uL) Final RBC 03/05/2024 10:37:53 4.83 4.50-5.25 (M/uL) Final Hemoglobin 03/05/2024 10:37:53 14.7 14.0-16.8 (g/dL) Final HCT 03/05/2024 10:37:53 45.6 40.0-48.4 (%) Final MCV 03/05/2024 10:37:53 94.4 82.0-99.5 (fL) Final MCH 03/05/2024 10:37:53 30.4 27.0-34.0 (pg) Final MCHC 03/05/2024 10:37:53 32.2 32.0-36.0 (g/dL) Final RDW 03/05/2024 10:37:53 14.2 11.5-15.5 (%) Final Platelets 03/05/2024 10:37:53 213 140-400 (K /uL) Final MPV 03/05/2024 10:37:53 9.6 6.6-11.1 ( fL) Final Performing Location [facility] [place] [address]
--- OUTSIDE RECORDS SUMMARY | 2024-03-30 02:36 | External Medical Summary | Continuity of Care Document ---
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 Health Maintenance: discussed healthy life style (diet and exercise). Routine eye and dental care. Tdap eRx'ed to pharmacy. pt will also get the RSV vaccine at pharmacy as well. Colonoscopy ordered. 2.CAD in [place] artery Status: chronic, controlled. Data: EMR. Goal: controlled and stable. Plan: continue current treatment plan. 3.Hyperlipidemia Status: chronic, controlled. Data: EMR. Goal: controlled and stable. Plan: continue current treatment plan. 4.Impaired fasting glucose Pre-DM: Status: chronic, uncontrolled. Data: FBS, A1C Goal: resolution Plan: cont to lose wt. continue Therapeutic life style modification (diet and exercise). 5.Lymphoplasmacytoid lymphoma, CLL Status: chronic, controlled. Data: EMR. Goal: controlled and stable. Plan: continue current treatment plan. 6.MORBID OBESITY improving. cont Therapeutic life style modification (diet and exercise). 7.Colon cancer screening colonoscopy ordered. Check labs prior to next visit: HBA1C BTO6 months for f/u pre-DM and wt. Immunizations Given and Recorded Vaccine Date Status Refusal Reason SARS-CoV-2 (COVID-19) mRNA-vacc - [id number] 08/23/23 Recorded influenza virus vaccine, inactivated 07/21/23 [...] toxoids-diphtheria, Td (Adult) 07/12/05 Re corded Medications Adacel (Tdap) intramuscular suspension Start: 01/10/24 16:04:00 EDT, 0.5 mL, IM, ONCE, Disp# 0.5 mL, have shot in pharmacy, Pharmacy: [id number] Start Date: 01/10/24 Status: Ordered Aspirin Low Dose Start: 11/26/10 14:06:12, 81 [...] to Pharmacy: [facility], Pharmacy: [facility] Start Date: 11/07/23 Status: Ordered [...] qhs, Disp# 90 tab, Refills: 3, Pharmacy: [facility] Start Date: 11/07/23 Status: Ordered Mental Status 01/10/24 Barriers to Learning one year None evide nt Mandatory Health Literacy Documentation Yes Health Literacy Communication Barriers N ever Primary Language Indonesian Problem List Condition Confirmation Course Effective Dates Status Health Status Informant Basal cell adenocarcinoma 1 Confirmed Active Bruise Confirmed Active CAD in [place] artery Confirmed Active Changing skin lesion Confirmed Active Colonoscopy 2, 3 Confirmed Active Coronary arteriosclerosis in [place] artery Confirmed Active Drug coated stent 4 [...] Confirmed Active 1sees Dr. Pierce ; hemorrhoids 40663: normal 4stents x2 RCA distal, RCA Mid 5sees Dr. Humphreys 6sees Dr. Faria 7Pt has Advanced Directives for health and living will for health and Power of Attoney, copy in chart. 8tubular adenoma , 3 stents Diagnosis Diagnosis Type Effective Dates Health Status Clinical Service Informant CAD in [place] artery Discharge Diagnosis 01/10/24 Impaired fasting glucose Discharge Diagnosis 01/10/24 Health care maintenance Discharge Diagnosis 01/10/24 Hyperlipidemia Discharge Diagnosis 01/10/24 Lymphoplasmacytoid lymphoma, CLL Discharge Diagnosis 01/10/24 MORBID OBESITY Discharge Diagnosis 01/10/24 Colon cancer screening Discharge Diagnosis 01/10/24 Procedures Procedure Date Related Diagnosis Body Site [...] forceps. Resected and retrieved. 3right neck 4Cardiac 93253: hemorrhoids 6Colonoscopy normal- Repeat in 5 years due to Family History of Colon Ca. 7stenting x 2 in RCA 810/2018 Vital Signs Most recent to oldest [Reference Range]: 1 Height 180.9 cm (01/10/24 3:13 PM) Patient Weight 98.9 kg (01/10/24 3:13 PM) Body Mass Index 30.22 kg/m2 (01/10/24 3:13 PM) Heart Rate 60 bpm (01/10/24 3:13 PM) Respiratory Rate 18 br/min (01/10/24 3:13 PM) Blood Pressure 128/82mmHg (01/10/24 3:13 PM) Social History Social History Type Response Smoking Status Never smoked cigaret aretha Sex Male FCM Outpt Note * MD Kevin, Sabas: PERFORM Event Display: FCM Outpt Note Authored Date: [id number] Chief Complaint 1 year f/u- wants to discuss RSV vaccine and Hgba1c results. History of Present Illness Medical conditions: feels good, no c/o. No SE from meds. cut down in chips and desert, soda - lost 7-8lb since last 06/2023 due to 's illness, she could not cook, they have been eating out more. Lots of stress in past 6 months - family illness/family . sees Dr. Solares for Hx fo CAD. stable. Sees derm for Hx of BCC. sees Dr. Humphreys for CLL, stable. HM: Last colonoscopy in 2019: polyp, repeat 5 years due toFHX of colon cancer Immunization reviewed in EMR, due for Tdap. will alos have RSV in pharamcy Histories updated and reviewed with patient with changes reflected. Walks regularly. Healthy/balancedeating. Tobacco: no sees eye doctor and dentis regularly socially connected. Alcohol: occasional Feeling safe at home. 10 system ROS completed and negative except as noted above. lab results in 10/2023 reviewed in EMR: CMP, lipid normal. A1C increased from 6 to 6.5 Physical Exam Vitals & Measurements HR:60(Monitored) RR:18 BP:128/82 SpO2:97% HT:180.9cm WT:98.900kg(Dosing) WT:98.9kg BMI:30.22 PHQ2 Data(Data Documented on:01/10/2024 15:13) Emotional health assessment NEGATIVE GENERAL: A&Ox3. No acute distress. Affect and speech appropriate. HEENT: PERRLA, EOMI, Conjunctivae clear. NECK: Supple, No lymphadenopathy. No carotid bruits. HEART: RRR, normal S1, S2. No murmurs, gallops or clicks. LUNGS: breathing not labored, breathing sound clear, breathing sound equal bilaterally, no rales, no wheezing. ABDOMEN: Positive bowel sound, soft, nontender, non-distended. No hepatosplenomegaly noted. No mass. EXTREMITIES: No edema, clubbing or cyanosis. Assessment/Plan 1.Health care maintenance 1. Health Maintenance: discussed healthy life style (diet and exercise). Routine eye and dental care. Tdap eRx'ed to pharmacy. pt will also get the RSV vaccine at pharmacy as well. Colonoscopy ordered. 2.CAD in [place] artery Status: chronic, controlled. Data: EMR. Goal: controlled and stable. Plan: continue current treatment plan. 3.Hyperlipidemia Status: chronic, controlled. Data: EMR. Goal: controlled and stable. Plan: continue current treatment plan. 4.Impaired fasting glucose Pre-DM: Status: chronic, uncontrolled. Data: FBS, A1C Goal: resolution Plan: cont to lose wt. continue Therapeutic life style modification (diet and exercise). 5.Lymphoplasmacytoid lymphoma, CLL Status: chronic, controlled. Data: EMR. Goal: controlled and stable. Plan: continue current treatment plan. 6.MORBID OBESITY improving. cont Therapeutic life style modification (diet and exercise). 7.Colon cancer screening colonoscopy ordered. Check labs prior to next visit: HBA1C BTO6 months for f/u pre-DM and wt. Attestation Pre-visit plannin min [id number] visit:20 min Post-visit:0 min Total visit time: 30 min Problem List/Past Medical History Ongoing Actinic keratoses Basal cell adenocarcinoma Bruise CAD in [place] artery Changing skin lesion Colonic polyp Colonoscopy Coronary arteriosclerosis in [place] artery DNR (do not resuscitate) Drug coated stent Dyspnea| Status: Inactive Echocardiogram abnormal Family history of melanoma History of basal cell carcinoma of skin Hyperlipidemia Impaired fasting glucose Lymphoplasmacytoid lymphoma, CLL MORBID OBESITY Onychomycosis Rosacea Seborrheic keratoses Skin lesion Stented coronary artery Umbilical hernia Weight disorder Historical Granulation tissue Procedure/Surgical History Electrodesiccation with curettage| Service Date: 01/19/2023Shave biopsy and cauterization of skin| Service Date: 12/08/2022Shave biopsy and cauterization of skin| Service Date: 06/23/2021have biopsy and cauterization of skin| Service Date: 01/12/2021Colonoscopy| Service Date: 019Electrodesiccation with curettage| Service Date: 08/09/2018Shave biopsy of skin| Service Date: 07/31/2018Angioplasty| Service Date: 06/24/2013Colonoscopy| Service Date: 01/23/2012ppendectomycardiac stentsCardiac catheterizationplastic surgery on lipStress test treadmil l Medications aspirin(Aspirin Low Dose), 81 mg, PO, [...] mg= 1 tab, PO, qhs, 3 refills tetanus/diphth/pertuss (Tdap) adult/adol(Adacel (Tdap) intramuscular suspension), 0.5 mL, IM, ONCE zoster vaccine, inactivated(Shingrix intramuscular injection), 0.5 mL, [...] Father. TIA: Mother. Health Status Family Member(s) Immunizations Vaccine Date Status SARS-CoV-2 (COVID-19) mRNA-vacc - [id number] 08/23/2023 Recorded influenza virus vaccine, inactivated 07/21/2023 Recorded zoster vaccine, inactivated 05/19/2023 Recorded zoster vaccine, inactivated 12/29/2022 Recorded influenza virus vaccine, inactivated 07/14/2022 Given SARS-CoV-2 (COVID-19) mRNA BNT-162b2 vax 12/30/2020 Recorded influenza virus vaccine, inactivated 10/08/2020 Given influenza virus vaccine, inactivated 08/15/2019 Given influenza virus vaccine, inactivated 08/23/2018 Given influenza virus vaccine, inactivated 10/16/2017 Given influenza virus vaccine, inactivated 10/12/2016 Given influenza virus vaccine, inactivated 10/07/2015 Given influenza virus vaccine, inactivated 08/25/2014 Given pneumococcal 13-valent vaccine 08/25/2014 Given influenza virus vaccine, inactivated 08/25/2014 Given tetanus/diphtheria/pertuss, acel (Tdap) 03/29/2013 Given zoster vaccine live 10/15/2012 Recorded pneumococcal 23-valent vaccine 09/10/2012 Given influenza virus vaccine, inactivated 09/10/2012 Given influenza virus vaccine, inactivated 09/14/2011 Given tetanus toxoids-diphtheria, Td (Adult) 07/12/2005 Recorded Recommendations Health Maintenance Pending(in the next year) OverDue Medicare Annual Wellness Visit due07/14/23and every 1year Due Adult COVID-19 Vaccination due01/10/24Unknown Frequency Adult Social Determinants of Health Screening due01/10/24Unknown Frequency Adult Tdap/Td Vaccine due01/10/24Unknown Frequency Due In Future Adult Influenza Vaccine not due until04/28/24and every 1year Body Mass Index not due until11/07/24and every Satisfied(in the past 1 year) Satisfied Adult Influenza Vaccine on07/21/23.Satisfied by LUCY Johnson Jenna Body Mass Index on01/10/24.Satisfied by LUCY Johnson Jenna Lipid Screening on11/07/23.Satisfied by Contributor_system, [employer] Electronic Signature on File Electronically Reviewed/Signed by: Sabas Brown MD Author Signature Dt/Tm:01/10/2024 04:16 PM Department of Family Medicine [facility] Patient Care team information Care Team Personnel Name: MD Brown Juan Position: Physician - Family Med Member Role: Primary Care Provider Address: Address: [address] [place] [id number] [place] Care Team Related Persons Name: ALLEGRA SIDHU Address: home [address] [place], [place] [id number]"
--- OUTSIDE RECORDS SUMMARY | 2024-03-30 02:36 | External Medical Summary | Continuity of Care Document ---
Author Name Unknown Organization [facility] [address] [facility] [address] [id number] Care Team Providers Care Broach Operator Name Role Phone Sabas Brown Primary Care Physician [phone] Encounter [facility] [id number] Date(s): 11/09/23 - 11/09/23 [facility] [address] [facility] [address] [phone] Encounter Diagnosis History of basal cell carcinoma of skin(Discharge Diagnosis) - 11/09/23 Family history of melanoma(Discharge Diagnosis) - 11/09/23 Actinic keratoses(Discharge Diagnosis) - 11/09/23 Seborrheic keratoses(Discharge Diagnosis) - 11/09/23 Discharge Disposition: Home or Self Care Attending Physician: MD Copeland Sara B Allergies, Adverse Reactions, Alerts Substance Reaction Severity Status ketoconazole topical reddness Rash Active Assessment and Plan Extracted from: Title:Office Visit Note Author:MD Min, Mahesh Kaur Date:11/09/23 1.History of basal cell ca rcinoma of skin Warning signs of skin cancer were reviewed. Sun protection reviewed. Follow-up in 6 -12months, sooner for any changing or growing lesions or acute concerns. I also recommended monthly self skin exams 2.Family history of melanoma Patient aware of of increased risk 3.Actinic keratoses Chronicbut worsening. We discussed different options and elected to proceed with Efudex calcipotriene. Risks and benefits including bleeding scarring infection painwere all discussed. Written instructions given. [facility] and patient was given the number to contact them for his prescription. Call with any issues. 4.Seborrheic keratoses Chronic, within normal limits Immunizations Given and Recorded Vaccine Date Status Refusal Reason SARS-CoV-2 (COVID-19) mRNA-vacc - [id number] 08/23/23 Recorded influenza virus vaccine, inactivated 07/21/23 [...] to Pharmacy: [facility], Pharmacy: [facility] Start Date: 11/07/23 Status: Ordered [...] qhs, Disp# 90 tab, Refills: 3, Pharmacy: [facility] Start Date: 11/07/23 Status: Ordered Shingrix intramuscular injection Start: 12/29/22 13:44:00 EST, 0.5 mL, IM, ONCE, Disp# 1 each, Refills: 1, repeat dose in 2 to 6 months. have shot in pharmacy, Pharmacy: [id number] Start Date: 12/29/22 Status: Ordered Mental Status 11/09/23 Barriers to Learning one year None evide nt Mandatory Health Literacy Documentation Yes Health Literacy Communication Barriers N ever Primary Language [place] Islander Problem List Condition Confirmation Course Effective Dates Status Health Status Informant Basal cell adenocarcinoma 1 Confirmed Active Bruise Confirmed Active CAD in [place] artery Confirmed Active Changing skin lesion Confirmed Active Colonoscopy 2, 3 Confirmed Active Coronary arteriosclerosis in [place] artery Confirmed Active Drug coated stent 4 [...] Confirmed Active 1sees Dr. Pierce ; hemorrhoids 18469: normal 4stents x2 RCA distal, RCA Mid 5sees Dr. Humphreys 6sees Dr. Faria 7Pt has Advanced Directives for health and living will for health and Power of Attoney, copy in chart. 8tubular adenoma , 3 stents Diagnosis Diagnosis Type Effective Dates Health Status Clinical Service Informant History of basal cell carcinoma of skin Discharge Diagnosis 11/09/23 Actinic keratoses Discharge Diagnosis 11/09/23 Family history of melanoma Discharge Diagnosis 11/09/23 Seborrheic keratoses Discharge Diagnosis 11/09/23 Procedures Procedure Date Related Diagnosis Body Site [...] forceps. Resected and retrieved. 3right neck 4Cardiac 35151: hemorrhoids 6Colonoscopy normal- Repeat in 5 years due to Family History of Colon Ca. 7stenting x 2 in RCA 81 Social History Social History Type Response Smoking Status Never smoked cigaret aretha Sex Male Dermatology Outpatient Note * MD Min, Janny Kaur: PERFORM Event Display: Dermatology Outpt Note Authored Date: [id number] Chief Complaint 6 month skin check. Lesion central chest History of Present Illness year-old male, who has a history of several nonmelanoma skin cancers. 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 Had a basal cell left central chest treated with electrodesiccation and curettage by Dr. Rojo in spring 2022 Used Efudex aboutfouryears ago. He cleared quite well. He also has extensive onychomycosis and some rosacea.Using Penlac. [1] Today lsion central chest. HE IS ALLERGIC TO KETOCONAZOLE WITH A TOPICAL REACTION. Physical Exam Gen: Well appearing patient, no acute distress. Alert and oriented x3. Good mood. Skin examination completed of face, eyelids, scalp, hair, lips, ears, neck, chest, back, abdomen,upper and lower extremities bilaterally including hands, feet, fingers and toes, fingernails and toenails, pt declined buttocks and groin.Continues to have onychomycosis. He has actinic keratoses on his central scalp and upper forehead. No evidence of recurrent skin cancer. No neck supraclavicular posterior occipital lymphadenopathy. He has a slightly hypertrophic scar from the BCC onthe chest. He does not wish it treated today. Scattered seborrheic keratoses. Assessment/Plan 1.History of basal cell carcinoma of skin Warning signs of skin cancer were reviewed. Sun protection reviewed. Follow-up in 6 -12months, sooner for any changing or growing lesions or acute concerns. I also recommended monthly self skin exams 2.Family history of melanoma Patient aware of of increased risk 3.Actinic keratoses Chronicbut worsening. We discussed different options and elected to proceed with Efudex calcipotriene. Risks and benefits including bleeding scarring infection painwere all discussed. Written instructions given. [facility]cription [facility] to [facility] and patient was given the number to contact them for his prescription. Call with any issues. 4.Seborrheic keratoses Chronic, within normal limits Problem List/Past Medical History Ongoing Actinic keratoses Basal cell adenocarcinoma Bruise CAD in [place] artery Changing skin lesion Colonic polyp Colonoscopy Coronary arteriosclerosis in [place] artery DNR (do not resuscitate) Drug coated [...] mg= 1 tab, PO, qhs, 3 refills unlisted medication(Efudex/Calciportiene), See Instructions, 1 refills zoster vaccine, inactivated(Shingrix intramuscular injection), 0.5 [...] Vaccine Date Status SARS-CoV-2 (COVID-19) mRNA-vacc - [id number] 08/23/2023 Recorded influenza virus vaccine, inactivated 07/21/2023 [...] due07/14/23and every 1year Due Adult COVID-19 Vaccination due11/09/23Unknown Frequency Adult Social Determinants of Health Screening due11/09/23Unknown Frequency Adult Tdap/Td Vaccine due11/09/23Unknown Frequency Due In Future Adult Influenza Vaccine not due until04/28/24and every 1year Body Mass Index not due until11/07/24and every 366 Satisfied(in the past 1 year) Satisfied Adult Influenza Vaccine on07/21/23.Satisfied by LUCY Johnson Jenna Body Mass Index on06/28/23.Satisfied by LUCY Johnson Jenna Lipid Screening on11/07/23.Satisfied by Contributor_system, [email or web address] [1]Office Visit Note; MD Min, Janny Kaur 03/15/2023 15:12 EDT Electronic Signature on File Electronically Reviewed/Signed by: Janny Copeland MD Author Signature Dt/Tm:11/09/2023 02:18 PM Department of Dermatology [facility] Patient Care team information Care Team Personnel Name: MD Brown Juan Position: Physician - Family Med Member Role: Primary Care Provider Address: Address: [address] [place] [id number] Care Team Related Persons Name: LALEGRA SIDHU Address: home [address] [place] [phone]
--- OUTSIDE RECORDS SUMMARY | 2024-03-30 02:36 | External Medical Summary | Continuity of Care Document ---
Author Name Unknown Organization [facility] [address] [facility] Address [address] [place], [place] [id number] Care Team Providers Care Bilingual [employer] Name Role Phone Sabas Brown Primary Care Physician [phone] [facility] [id number] Date(s): 12/07/23 - 12/07/[address] [facility] [address] [facility], [address] [place] [address] [phone] Encounter Diagnosis RAUSCH (dyspnea on exertion)(Discharge Diagnosis) - 12/07/23 Discharge Disposition: Home or Self Care Attending Physician: JATIN Vasquez Sarah A Allergies, Adverse Reactions, Alerts Substance Reaction Severity Status ketoconazole topical reddness Rash Active Assessment and Plan Extracted from: Title:TeleHealth Visit Note Author:KRISH Vasquez Sarah A Date:12/07/23 IMPRESSIONS: 1. Status post angioplasty and stenting of the right coronary with two drug- eluting stents in 2012. 2. History of an abnormal stress ECG with normal stress echo imaging, 08/2019, with preserved left ventricular systolic function and a functional capacity greater than 20%. 3. Hyperlipidemia. 4. Diagnosis of CLL, followed by Dr. Faria at [facility]. Mr. Escalera shortness of breath is very inconsistent and not clearlyrepresenting angina. He does feel better since having lost a little bit of weight. His blood pressure is well-controlled. At this pointI would not attribute his shortness of breathto being an anginal equivalent. He did have a heartburn type sensation once with exertion. I did ask him to let us know if this would happenmore often going forward. He has been monitoring his heart rate on his walks which gets as high as 105 bpmso I do not think chronotropic incompetence is playing a role. At this point I advised him to continue working on weight loss andlifestyle interventions. Will touch base again in 2 months to see if his symptoms continue to improve. Certainly if they arebecoming more frequent or worse over the next 2 months he should call ussooner rather than later Immunizations Given and Recorded Vaccine Date Status Refusal Reason SARS-CoV-2 (COVID-19) mRNA-vacc - [id number] 08/23/23 Recorded influenza virus vaccine, inactivated 07/21/23 [...] to Pharmacy: [facility], Pharmacy: [facility] Start Date: 11/07/23 Status: Ordered [...] qhs, Disp# 90 tab, Refills: 3, Pharmacy: [facility] Start Date: 11/07/23 Status: Ordered Shingrix intramuscular injection Start: 12/29/22 13:44:00 EST, 0.5 mL, IM, ONCE, Disp# 1 each, Refills: 1, repeat dose in 2 to 6 months. 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 Pierce ; hemorrhoids 86926: normal 4stents x2 RCA distal, RCA Mid 5sees Dr. Humphreys 6sees Dr. Faria 7Pt has Advanced Directives for health and living will for health and Power of Attoney, copy in chart. 8tubular adenoma , 3 stents Diagnosis Diagnosis Type Effective Dates Health Status Cl inical Service Informant RAUSCH (dyspnea on exertion) Discharge Diagnosis 12/07/23 Non-Specified Procedures Procedure Date Related Diagnosis Body [...] forceps. Resected and retrieved. 3right neck 4Cardiac 12396: hemorrhoids 6Colonoscopy normal- Repeat in 5 years due to Family History of Colon Ca. 7stenting x 2 in RCA Social History Social History Type Response Smoking Status Never smoked cigaret aretha Sex Male Cardiology Outpatient Note * JATIN Vasquez Sarah A: PERFORM, MODIFY Event Display: Cardiology Outpt Note Authored Date: [id number] TeleHealth Visit Note I have confirmed the patients name and date of . The patient has consented to this service,and I have advised the patient that this is a billable visit for which they may be subject to a copay. [ _ ] The patient has initiated this visit after he/she was informed of the availability of telehealth for this medically necessary visit. [x _ ] The provider initiated this visit after explaining the need for this visit to the patient, who has consented to this virtual visit. I am located at my: [ _x ] Office [ _ ] Home [ _ ] Other: _ The patient is located at: [ x_ ] Home [ _ ] Other: _ This visit was conducted via live audio/video technology: [ _ ] [facility] [ _ ] Zoom This visit was conducted via [ x_ ] Telephone, and was not related to a visit or procedure that occurred within the past 7 days. Telephone Only Visit: Reason for audio only visit was [ _ ] no internet connection available [ x_ ] Other: patient preference_. Total time spent communicating with the patient: 16_ minutes History of Present Illness Mr. Escalera presents forfollow up of his complaints of feeling like he has to takea very deep breath at times on his walks. His shortness of breath remainsinconsistent. 1 day [facility] with his dog with no trouble. Other times he will feel like he has to take really deep breaths. 1 time in the past month he did feel heartburn on his walk. He notes that since losing 5 pounds this week with dietary changes he is having less symptoms. At times he also feels aware that his heart is beating. Blood pressures at home have been running 1 teens to 130s over 80 to Review of Systems All other systems reviewed and negative except as discussed in the HPI Physical Exam Deferred for telephone visit Assessment/Plan IMPRESSIONS: 1. Status post angioplasty and stenting of the right coronary with two drug- eluting stents in 2012. 2. History of an abnormal stress ECG with normal stress echo imaging, 08/2019, with preserved left ventricular systolic function and a functional capacity greater than 20%. 3. Hyperlipidemia. 4. Diagnosis of CLL, [facility]. Mr. Escalera shortness of breath is very inconsistent and not clearlyrepresenting angina. He does feel better since having lost a little bit of weight. His blood pressure is well-controlled. At this pointI would not attribute his shortness of breathto being an anginal equivalent. He did have a heartburn type sensation once with exertion. I did ask him to let us know if this would happenmore often going forward. He has been monitoring his heart rate on his walks which gets as high as 105 bpmso I do not thinkchronotropic incompetence is playing a role. At this point I advised him to continue working on weight loss andlifestyle interventions. Will touch base again in 2 months to see if his symptoms continue to improve. 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 DNR (do not resuscitate) Drug coated [...] Vaccine Date Status SARS-CoV-2 (COVID-19) mRNA-vacc - [id number] 08/23/2023 Recorded influenza virus vaccine, inactivated 07/21/2023 [...] due07/14/23and every 1year Due Adult COVID-19 Vaccination due12/07/23Unknown Frequency Adult Social Determinants of Health Screening due12/07/23Unknown Frequency Adult Tdap/Td Vaccine due12/07/23Unknown Frequency Due In Future Adult Influenza Vaccine not due until04/28/24and every 1year Body Mass Index not due until11/07/24and every 366day Satisfied(in the past 1 year) Satisfied Adult Influenza Vaccine on07/21/23.Satisfied by LUCY Johnson Jenna Body Mass Index on06/28/23.Satisfied by LUCY Johnson Jenna Lipid Screening on11/07/23.Satisfied by Contributor_[email or web address], [email or web address] Electronic Signature on File CC: Sabas Brown MD [address] [place] [id number] Electronically Reviewed/Signed by: JATIN Pate Author Signature Dt/Tm:12/07/2023 04:50 PM [facility] Patient Care team information Care Team Personnel Name: MD Brown Juan Position: Physician - Family Med Member Role: Primary Care Provider Address: Address: [address] [place] [id number] [place] Care Team Related Persons Name: ESCALERA ALLEGRA Address: [address] [id number]
[2024-04-01 19:02] LABS: Babesia microti DNA Not Detected (Not Detected)
== END 2024-03-29 13:18 | disposition home or self-care (01) | DRG 194 ==
LOC: ED 07:49 → INTOOBSV 11:36 → SUATTDRO 11:36 → 2N 11:36